=== PATIENT | male | born 1970 | race Two or more races ===

== ENCOUNTER → 2016-05-03 | Outpatient (CLI) | payer BC ==
[~2016-05-03] MED LIST: ASPI81TA13 PO; ATOR10TA PO; CHLO25TA22 PO; GLIP-115 PO; HYDR100T9 PO; LOS50T PO; METO25TA62 PO; METR1CAP OR; SIMV-13 PO
[2016-05-03 10:24] LABS: Urine Protein/Creatinine Ratio 8.49
[2016-05-03 10:29] LABS: Albumin 2.3 g/dL (3.4-5.0); BUN/Creatinine Ratio 21.2; Bilirubin, Total 0.2 mg/dL (0.2-1.0); Calcium 8.2 mg/dL (8.5-10.1); Magnesium 2.3 mg/dL (1.6-2.6); Phosphorus 4.2 mg/dL (2.5-4.90); Potassium 4.8 mmol/L (3.5-5.1); Total Protein 6.5 g/dL (6.4-8.2); Uric Acid 8.5 mg/dL (3.5-7.2)
== END | disposition home or self-care (01) ==
LOC: LAB 08:55
PROVIDERS: ATTEND Internal Medicine Nephrology
DX: N18.3 Chronic kidney disease, stage 3 (moderate) (principal); E83.2 Disorders of zinc metabolism; E21.3 Hyperparathyroidism, unspecified; E83.39 Other disorders of phosphorus metabolism; R80.9 Proteinuria, unspecified
CPT/HCPCS: 36415; 80053; 82570; 83735; 83970; 84100; 84156; 84550

== ENCOUNTER → 2016-06-25 | Outpatient (CLI) | payer BC ==
[2016-06-25 11:17] LABS: Urine Protein/Creatinine Ratio 10.24
[2016-06-25 11:21] LABS: Albumin 2.8 g/dL (3.4-5.0); BUN/Creatinine Ratio 21.8; Bilirubin, Total 0.3 mg/dL (0.2-1.0); Calcium 8.6 mg/dL (8.5-10.1); Magnesium 2.1 mg/dL (1.6-2.6); Phosphorus 4.3 mg/dL (2.5-4.90); Potassium 4.7 mmol/L (3.5-5.1); Total Protein 7.4 g/dL (6.4-8.2); Uric Acid 9.2 mg/dL (3.5-7.2)
== END | disposition home or self-care (01) ==
LOC: LAB 10:22
PROVIDERS: ATTEND Internal Medicine Nephrology
DX: N18.3 Chronic kidney disease, stage 3 (moderate) (principal); E83.2 Disorders of zinc metabolism; E83.39 Other disorders of phosphorus metabolism; E21.3 Hyperparathyroidism, unspecified; R80.9 Proteinuria, unspecified; E55.9 Vitamin D deficiency, unspecified; E13.22 Other specified diabetes mellitus with diabetic chronic kidney disease
CPT/HCPCS: 36415; 80053; 80061; 82306; 82570; 83036; 83735; 83970; 84100; 84153; 84156; 84550

== ENCOUNTER 2016-08-21 23:59 | Inpatient (IN) | payer BC ==
[~2016-08-21] VITALS: Ht 175.3 cm; Wt 80.9 kg
[2016-08-22] VITALS (69 sets, daily range): BP systolic 86–177; BP diastolic 45–100
[2016-08-22 00:47] LABS: Allen Test Yes; Base Excess -6.7 mmol/L (-2.0-2.0); Blood 02Sat 83.3 % (96-100); Blood COHb 0.3 % (0.5-1.5); Blood MetHb 0.3 % (0.0-1.5); HCO3 17.1 mmol/L (22-26.0); HHb 16.6 % (0.0-5.0); MODE NASAL CANNULA; O2Hb 82.8 % (94.0-97.0); PCO2 28.8 mmHg (35.0-45.0); PCO2(T) 28.8 mmHg (35.0-45.0); Sample Type Arterial; pH 7.392 (7.350-7.450)
[2016-08-22 00:49] LABS: Hemoglobin 9.9 g/dL (13.5-17.5); Mean Corpuscular Hemoglobin 29.6 pg (28.0-32.0); Mean Corpuscular Hgb Conc. 32.9 g/dL (32.0-36.0); Mean Corpuscular Volume 89.9 fL (80.0-100.0); Mean Platelet Volume 8.1 fL (7.4-10.4); Platelet Count (auto) 248 10^3/uL (140-450); Red Cell Distribution Width 12.2 % (11.6-16.0); SUSPECT VIEW TRANSMISSION; White Blood Cell 16.3 10^3/uL (4.4-10.8)
[2016-08-22 00:52] LABS: Metamyelocytes % 0; Myelocytes % 0; Promyelocytes % 0; Reactive Lymphocytes 0
[2016-08-22 01:07] LABS: Albumin 2.9 g/dL (3.4-5.0); Calcium 8.5 mg/dL (8.5-10.1); Magnesium 2.7 mg/dL (1.6-2.6); Potassium 4.4 mmol/L (3.5-5.1)
[2016-08-22 01:08] LABS: INR 1.02 (0.9-1.15); Partial Thromboplastin Time 31.9 sec (22.64-33.71); Prothrombin Time 11.1 sec (9.37-12.3)
[2016-08-22 01:09] LABS: BUN/Creatinine Ratio 27.9
[2016-08-22 01:12] LABS: Bilirubin, Total 0.4 mg/dL (0.2-1.0); Total Protein 7.7 g/dL (6.4-8.2)
[2016-08-22 01:21] LABS: Anisocytosis Slight; Platelet Estimate Adequate
[2016-08-22 01:25] LABS: Temperature: 21.9 C (20.0-25.0)
[2016-08-22] MEDS ORDERED: BUMETANIDE (0.25MG/ML) 4 ML VIAL IV ONE (01:30)
[2016-08-22] MEDS ORDERED: cefTRIAXone 1GM/50ML D5W 50 ML IV ONE (01:30)
[2016-08-22 02:25] LABS: Urine Bilirubin Negative (Negative); Urine Blood Negative /uL (Negative); Urine Color Yellow (Yellow); Urine Glucose Normal (Normal); Urine Hyaline Cast FEW /lpf (0 - 2); Urine Ketone Negative (Negative); Urine Nitrite Negative (Negative); Urine RBC 4 /hpf (0 - 3); Urine Squamous Epithelial Cell FEW /hpf (<5); Urine Urobilinogen Normal (Negative); Urine pH 5.5 (5.0-8.0)
[2016-08-22 04:00] LABS: Allen Test Yes; Base Excess -7.8 mmol/L (-2.0-2.0); Blood 02Sat 94.9 % (96-100); Blood COHb 0.3 % (0.5-1.5); Blood MetHb 0.2 % (0.0-1.5); HCO3 16.4 mmol/L (22-26.0); HHb 5.1 % (0.0-5.0); MODE MASK - BIPAP; O2Hb 94.4 % (94.0-97.0); PO2 91.3 mmHg (80.0-100.0); PO2(T) 91.3 mmHg (80.0-100.0); Sample Type Arterial; pH 7.369 (7.350-7.450)
[2016-08-22] MEDS ORDERED: SODIUM BICARBONATE 8.4 % INJ 50ML VIAL IV ONE (04:30)
[2016-08-22] MEDS ORDERED: LORazepam 2MG/ML-1ML VIAL IV ONE (04:30)
[2016-08-22] MEDS ORDERED: ETOMIDATE (2MG/ML) 20ML VIAL IV ONE ×2 (04:58→05:15)
[2016-08-22] MEDS ORDERED: SUCCINYLCHOLINE CHLORIDE 20 MG/ML 10ML VIAL IV ONE ×2 (04:59→05:15)
[2016-08-22] MEDS ORDERED: MORPHINE SULF INJ 2 MG/ML SYRINGE 1ML IV ONE (05:00)
[2016-08-22] MEDS ORDERED: MIDAZOLAM DRIP 100 mg/100mL NS 100 ML IV ONE (05:07)
[2016-08-22] MEDS ORDERED: SODIUM CHLORIDE 0.9% 1,000 ML IV SCH (05:14)
[2016-08-22] MEDS: MIDAZOLAM DRIP 100 mg/100mL NS 100 ML IV SCH ×2 (05:28→20:52)
[2016-08-22] MEDS ORDERED: PROPOFOL 100 ML IV ONE (05:49)
[2016-08-22] MEDS ORDERED: PIPERACILLIN-TAZOB 2.25GM 50 ML IV SCH (06:00)
[2016-08-22] MEDS: PROPOFOL 100 ML IV SCH ×2 (06:06→11:56)
[2016-08-22] MEDS: SODIUM CHLOR 0.9% PF (SALINE LOCK) 10ML VIAL IV SCH ×3 (06:07→21:54)
[2016-08-22 06:42] LABS: Base Excess -8.5 mmol/L (-2.0-2.0); Blood 02Sat 91.4 % (96-100); Blood COHb 0.2 % (0.5-1.5); Blood MetHb 0.3 % (0.0-1.5); HCO3 17.5 mmol/L (22-26.0); HHb 8.6 % (0.0-5.0); MODE VENT - A/C; O2Hb 90.9 % (94.0-97.0); PCO2 37.4 mmHg (35.0-45.0); PCO2(T) 37.4 mmHg (35.0-45.0); PO2 75.3 mmHg (80.0-100.0); PO2(T) 75.3 mmHg (80.0-100.0); Sample Type Arterial; pH 7.287 (7.350-7.450)
[2016-08-22] MEDS: FAMOTIDINE (10MG/ML) 2ML VL IV SCH ×2 (10:00→21:50)
[2016-08-22] MEDS ORDERED: DOPamine 1600MCG/ML 250 ML IV SCH (12:15)
[2016-08-22] MEDS: ALBUMIN 25% 100 ML IV SCH ×2 (12:40→21:51)
[2016-08-22] MEDS: DOPamine 1600MCG/ML 250 ML IV SCH (12:40)
[2016-08-22] MEDS: BUMETANIDE (0.25 MG/ML) INJ 10ML IV SCH ×2 (14:02→17:41)
[2016-08-22] MEDS: PIPERACILLIN-TAZOB 2.25GM 50 ML IV SCH ×2 (14:16→21:55)
[2016-08-22] MEDS: SODIUM BICARBONATE 50ML VIAL 50 ML in D5W 5% 1,000 ML IV SCH ×2 (14:36→22:45)
[2016-08-22] MEDS ORDERED: LOSA50TA6 PO (15:02)
[2016-08-22] MEDS ORDERED: HYDR100T9 PO (15:02)
[2016-08-22] MEDS ORDERED: ASPI81CH43 PO (15:02)
[2016-08-22] MEDS ORDERED: METO-158 PO (15:02)
[2016-08-22] MEDS ORDERED: FERR325T PO (15:02)
[2016-08-22] MEDS ORDERED: ERGO2000 PO (15:02)
[2016-08-22] MEDS ORDERED: AMLO10TA2 PO (15:02)
[2016-08-22] MEDS ORDERED: BUME1TAB PO (15:02)
[2016-08-22] MEDS ORDERED: EZET10TA2 PO (15:02)
[2016-08-22] MEDS ORDERED: POTA20TA53 PO (15:02)
[2016-08-22] MEDS ORDERED: GLIM4TAB42 PO (15:02)
[2016-08-22] MEDS ORDERED: ATO40T PO (15:02)
[2016-08-22] MEDS ORDERED: DEXTROSE (50%) 50ML SYRG IV PRN (17:15)
[2016-08-22] MEDS: InsuLIN REG 1unit/0.01ml Soln (100units/ml) SC SCH ×2 (17:41→23:52)
[2016-08-22] MEDS: ACCU-CHEK COMFORT CURVE STRIP VI SCH (17:41)
[2016-08-23] VITALS (97 sets, daily range): BP systolic 114–169; BP diastolic 61–97
[2016-08-23 03:58] LABS: Basophils # (auto) 0 uL; Basophils % (auto) 0.4 % (0.0-2.0); DEFINITIVE VIEW TRANSMISSION; Eosinophils # (auto) 0.4 uL; Eosinophils % (auto) 3.7 % (0.0-7.0); Hematocrit 23.8 % (41.0-53.0); Hemoglobin 8.1 g/dL (13.5-17.5); Lymphocytes # (auto) 0.8 uL; Lymphocytes % (auto) 8.2 % (10.0-50.0); Mean Corpuscular Hemoglobin 30.5 pg (28.0-32.0); Mean Corpuscular Volume 89.6 fL (80.0-100.0); Mean Platelet Volume 8.1 fL (7.4-10.4); Monocytes # (auto) 0.4 uL; Monocytes % (auto) 4.3 % (0.0-12.0); Neutrophils # (auto) 8.1 uL; Neutrophils % (auto) 83.4 % (37.0-80.0); Platelet Count (auto) 211 10^3/uL (140-450); Red Cell Distribution Width 12.6 % (11.6-16.0); White Blood Cell 9.7 10^3/uL (4.4-10.8)
[2016-08-23 04:19] LABS: Calcium 8.4 mg/dL (8.5-10.1); Potassium 3.9 mmol/L (3.5-5.1)
[2016-08-23 04:23] LABS: Albumin 2.5 g/dL (3.4-5.0); BUN/Creatinine Ratio 30.7; Total Protein 6.6 g/dL (6.4-8.2)
[2016-08-23 04:25] LABS: Bilirubin, Total 0.5 mg/dL (0.2-1.0)
[2016-08-23] MEDS: InsuLIN REG 1unit/0.01ml Soln (100units/ml) SC SCH ×3 (06:00→17:57)
[2016-08-23] MEDS: PIPERACILLIN-TAZOB 2.25GM 50 ML IV SCH ×3 (06:16→21:49)
[2016-08-23] MEDS: BUMETANIDE (0.25 MG/ML) INJ 10ML IV SCH ×3 (06:17→21:50)
[2016-08-23] MEDS: ACCU-CHEK COMFORT CURVE STRIP VI SCH ×4 (06:17→17:56)
[2016-08-23] MEDS: SODIUM CHLOR 0.9% PF (SALINE LOCK) 10ML VIAL IV SCH ×3 (06:17→22:00)
[2016-08-23] MEDS: SODIUM BICARBONATE 50ML VIAL 50 ML in D5W 5% 1,000 ML IV SCH ×2 (09:15→19:45)
[2016-08-23] MEDS: FAMOTIDINE (10MG/ML) 2ML VL IV SCH ×2 (10:00→21:49)
[2016-08-23] MEDS: PROPOFOL 100 ML IV SCH ×2 (10:00→17:02)
[2016-08-23] MEDS: POTASSIUM CHL 20MEQ/100ML 100 ML IV SCH ×2 (10:15→12:15)
[2016-08-23 10:56] LABS: Allen Test Modified; Base Excess -2.6 mmol/L (-2.0-2.0); Blood 02Sat 96.7 % (96-100); Blood COHb 0.1 % (0.5-1.5); Blood MetHb 0.3 % (0.0-1.5); HCO3 21.9 mmol/L (22-26.0); HHb 3.3 % (0.0-5.0); MODE VENT - A/C; O2Hb 96.3 % (94.0-97.0); PCO2 37.1 mmHg (35.0-45.0); PCO2(T) 37.1 mmHg (35.0-45.0); Sample Type Arterial; pH 7.389 (7.350-7.450)
[2016-08-23] MEDS ORDERED: Diabetisource AC 1 Liter GT SCH (11:15)
[2016-08-23] MEDS: ENOXAPARIN SOD 30 MG/0.3 ML SYRINGE SC SCH (11:45)
[2016-08-23] MEDS: DOPamine 1600MCG/ML 250 ML IV SCH (17:02)
[2016-08-23] MEDS ORDERED: BUMETANIDE (0.25 MG/ML) INJ 10ML IV SCH (18:00)
[2016-08-23] MEDS ORDERED: ACETAMINOPHEN 650 mg PER 20 mL UD GT PRN (20:45)
[2016-08-23] MEDS ORDERED: ALBUMIN 25% 100 ML IV SCH (22:00)
[2016-08-24] VITALS (97 sets, daily range): BP systolic 116–175; BP diastolic 67–93
[2016-08-24] MEDS: SODIUM BICARBONATE 50ML VIAL 50 ML in D5W 5% 1,000 ML IV SCH (00:30)
[2016-08-24] MEDS: PROPOFOL 100 ML IV SCH (01:52)
[2016-08-24 04:27] LABS: Basophils # (auto) 0 uL; Basophils % (auto) 0.3 % (0.0-2.0); DEFINITIVE VIEW TRANSMISSION; Eosinophils # (auto) 0.8 uL; Eosinophils % (auto) 8.8 % (0.0-7.0); Hematocrit 22.7 % (41.0-53.0); Hemoglobin 7.8 g/dL (13.5-17.5); Lymphocytes % (auto) 10.8 % (10.0-50.0); Mean Corpuscular Hemoglobin 30.5 pg (28.0-32.0); Mean Corpuscular Hgb Conc. 34.3 g/dL (32.0-36.0); Mean Corpuscular Volume 89.1 fL (80.0-100.0); Mean Platelet Volume 8.3 fL (7.4-10.4); Monocytes # (auto) 0.5 uL; Monocytes % (auto) 5.8 % (0.0-12.0); Neutrophils # (auto) 6.9 uL; Neutrophils % (auto) 74.3 % (37.0-80.0); Platelet Count (auto) 217 10^3/uL (140-450); Red Cell Distribution Width 13.1 % (11.6-16.0); White Blood Cell 9.3 10^3/uL (4.4-10.8)
[2016-08-24 04:47] LABS: BUN/Creatinine Ratio 26.2; Calcium 8.4 mg/dL (8.5-10.1); Phosphorus 5.6 mg/dL (2.5-4.90); Potassium 3.4 mmol/L (3.5-5.1)
[2016-08-24] MEDS: MIDAZOLAM DRIP 100 mg/100mL NS 100 ML IV SCH (05:07)
[2016-08-24] MEDS: SODIUM CHLOR 0.9% PF (SALINE LOCK) 10ML VIAL IV SCH ×3 (05:49→21:38)
[2016-08-24] MEDS: PIPERACILLIN-TAZOB 2.25GM 50 ML IV SCH ×3 (05:49→21:38)
[2016-08-24] MEDS: ACCU-CHEK COMFORT CURVE STRIP VI SCH ×4 (06:00→17:42)
[2016-08-24] MEDS: InsuLIN REG 1unit/0.01ml Soln (100units/ml) SC SCH ×4 (06:00→17:42)
[2016-08-24 08:56] LABS: Allen Test Yes; Base Excess 0.2 mmol/L (-2.0-2.0); Blood 02Sat 86.3 % (96-100); Blood MetHb 0.2 % (0.0-1.5); HCO3 23.2 mmol/L (22-26.0); HHb 13.7 % (0.0-5.0); MODE VENT - A/C; O2Hb 86.1 % (94.0-97.0); PCO2 31.6 mmHg (35.0-45.0); PCO2(T) 31.6 mmHg (35.0-45.0); Sample Type Arterial; pH 7.484 (7.350-7.450)
[2016-08-24] MEDS: ENOXAPARIN SOD 30 MG/0.3 ML SYRINGE SC SCH (10:20)
[2016-08-24] MEDS: FAMOTIDINE (10MG/ML) 2ML VL IV SCH ×2 (10:20→21:38)
[2016-08-24] MEDS ORDERED: POTASSIUM CHL 20MEQ/100ML 100 ML IV SCH (12:00)
[2016-08-24] MEDS: POTASSIUM CHL 20MEQ/100ML 100 ML IV SCH ×2 (12:00→13:35)
[2016-08-24] MEDS: DOPamine 1600MCG/ML 250 ML IV SCH (12:15)
[2016-08-24] MEDS ORDERED: SODIUM BICARBONATE 50ML VIAL 50 ML in D5W 5% 1,000 ML IV SCH (12:15)
[2016-08-24] MEDS: BUMETANIDE (0.25MG/ML) 4 ML VIAL IV SCH ×2 (12:30→17:44)
[2016-08-24 15:08] LABS: Allen Test Yes; Base Excess 2.9 mmol/L (-2.0-2.0); Blood 02Sat 96.8 % (96-100); Blood COHb 0.3 % (0.5-1.5); Blood MetHb 0.4 % (0.0-1.5); HCO3 26.3 mmol/L (22-26.0); HHb 3.2 % (0.0-5.0); MODE VENT - CPAP; O2Hb 96.1 % (94.0-97.0); PCO2 35.4 mmHg (35.0-45.0); PCO2(T) 35.4 mmHg (35.0-45.0); PO2 102.5 mmHg (80.0-100.0); PO2(T) 102.5 mmHg (80.0-100.0); Pressure Support 8; Sample Type Arterial; pH 7.489 (7.350-7.450)
[2016-08-24] MEDS: METOPROLOL TARTRATE 50 MG TAB PO SCH (21:39)
[2016-08-24] MEDS ORDERED: hydrALAZINE HCL 10 MG TAB PO SCH (22:00)
[2016-08-24] MEDS: LOSARTAN POTASSIUM 50 MG TAB PO SCH (22:25)
[2016-08-25] VITALS (46 sets, daily range): BP systolic 108–156; BP diastolic 58–86
[2016-08-25 04:14] LABS: Basophils # (auto) 0 uL; Basophils % (auto) 0.4 % (0.0-2.0); DEFINITIVE VIEW TRANSMISSION; Eosinophils # (auto) 0.7 uL; Eosinophils % (auto) 7.2 % (0.0-7.0); Hematocrit 23.3 % (41.0-53.0); Hemoglobin 7.9 g/dL (13.5-17.5); Lymphocytes # (auto) 1.3 uL; Mean Corpuscular Hemoglobin 30.3 pg (28.0-32.0); Mean Corpuscular Hgb Conc. 33.9 g/dL (32.0-36.0); Mean Corpuscular Volume 89.4 fL (80.0-100.0); Mean Platelet Volume 8.4 fL (7.4-10.4); Monocytes # (auto) 0.6 uL; Monocytes % (auto) 5.9 % (0.0-12.0); Neutrophils # (auto) 7.6 uL; Neutrophils % (auto) 73.5 % (37.0-80.0); Platelet Count (auto) 214 10^3/uL (140-450); Red Cell Distribution Width 13.2 % (11.6-16.0); White Blood Cell 10.3 10^3/uL (4.4-10.8)
[2016-08-25 04:38] LABS: BUN/Creatinine Ratio 25.1; Calcium 8.3 mg/dL (8.5-10.1); Potassium 3.6 mmol/L (3.5-5.1)
[2016-08-25] MEDS: MIDAZOLAM DRIP 100 mg/100mL NS 100 ML IV SCH (05:07)
[2016-08-25] MEDS: PROPOFOL 100 ML IV SCH (05:48)
[2016-08-25] MEDS: PIPERACILLIN-TAZOB 2.25GM 50 ML IV SCH ×3 (06:00→21:15)
[2016-08-25] MEDS: SODIUM CHLOR 0.9% PF (SALINE LOCK) 10ML VIAL IV SCH ×3 (06:00→21:51)
[2016-08-25] MEDS: InsuLIN REG 1unit/0.01ml Soln (100units/ml) SC SCH ×5 (06:00→23:21)
[2016-08-25] MEDS: ACCU-CHEK COMFORT CURVE STRIP VI SCH ×5 (06:00→23:21)
[2016-08-25] MEDS: BUMETANIDE (0.25MG/ML) 4 ML VIAL IV SCH (06:00)
[2016-08-25] MEDS: hydrALAZINE HCL 25 MG TAB PO SCH ×3 (06:25→21:37)
[2016-08-25] MEDS ORDERED: hydrALAZINE HCL 25 MG TAB PO ONE (06:45)
[2016-08-25] MEDS: ENOXAPARIN SOD 30 MG/0.3 ML SYRINGE SC SCH (10:37)
[2016-08-25] MEDS: LOSARTAN POTASSIUM 50 MG TAB PO SCH (10:37)
[2016-08-25] MEDS: METOPROLOL TARTRATE 50 MG TAB PO SCH ×2 (10:38→21:37)
[2016-08-25] MEDS: FAMOTIDINE (10MG/ML) 2ML VL IV SCH (10:38)
[2016-08-25] MEDS: amLODIPine BESYLATE 5 MG TAB PO SCH (10:38)
[2016-08-25] MEDS ORDERED: FAMOTIDINE 20 MG TAB PO ONE (11:30)
[2016-08-25] MEDS ORDERED: POTASSIUM CHL 20 Meq TABLET PO ONE (12:15)
[2016-08-25] MEDS: CALCIUM ACETATE 667 MG CAP PO SCH (18:12)
[2016-08-25] MEDS ORDERED: FAMOTIDINE 20 MG TAB PO SCH (22:00)
[2016-08-26 04:42] VITALS: BP 142/76
[2016-08-26] MEDS: PIPERACILLIN-TAZOB 2.25GM 50 ML IV SCH ×3 (05:27→21:11)
[2016-08-26] MEDS: SODIUM CHLOR 0.9% PF (SALINE LOCK) 10ML VIAL IV SCH ×2 (05:30→22:00)
[2016-08-26] MEDS: hydrALAZINE HCL 25 MG TAB PO SCH ×3 (05:30→21:41)
[2016-08-26] MEDS: InsuLIN REG 1unit/0.01ml Soln (100units/ml) SC SCH ×4 (06:00→23:26)
[2016-08-26 06:04] LABS: Basophils # (auto) 0.2 uL; DEFINITIVE VIEW TRANSMISSION; Eosinophils # (auto) 0.9 uL; Eosinophils % (auto) 9.6 % (0.0-7.0); Hematocrit 25.3 % (41.0-53.0); Hemoglobin 8.7 g/dL (13.5-17.5); Lymphocytes # (auto) 1.1 uL; Lymphocytes % (auto) 11.4 % (10.0-50.0); Mean Corpuscular Hemoglobin 29.9 pg (28.0-32.0); Mean Corpuscular Hgb Conc. 34.3 g/dL (32.0-36.0); Mean Corpuscular Volume 87.3 fL (80.0-100.0); Mean Platelet Volume 8.3 fL (7.4-10.4); Monocytes # (auto) 0.6 uL; Monocytes % (auto) 6.2 % (0.0-12.0); Neutrophils # (auto) 6.7 uL; Neutrophils % (auto) 70.8 % (37.0-80.0); Platelet Count (auto) 184 10^3/uL (140-450); Red Cell Distribution Width 13.5 % (11.6-16.0); SUSPECT VIEW TRANSMISSION; White Blood Cell 9.5 10^3/uL (4.4-10.8)
[2016-08-26] MEDS: ACCU-CHEK COMFORT CURVE STRIP VI SCH ×4 (06:22→23:26)
[2016-08-26 06:23] LABS: BUN/Creatinine Ratio 19.8; Calcium 7.6 mg/dL (8.5-10.1); Potassium 4.1 mmol/L (3.5-5.1)
[2016-08-26] MEDS ORDERED: BUMETANIDE (0.25MG/ML) 4 ML VIAL IV SCH (07:00)
[2016-08-26] MEDS: SOD CHL 0.45% 1,000 ML IV SCH ×2 (08:56→21:50)
[2016-08-26] MEDS: CALCIUM ACETATE 667 MG CAP PO SCH ×3 (08:56→18:18)
[2016-08-26 09:00] VITALS: BP 146/79
[2016-08-26] MEDS: ENOXAPARIN SOD 30 MG/0.3 ML SYRINGE SC SCH ×2 (10:00→11:01)
[2016-08-26] MEDS: METOPROLOL TARTRATE 50 MG TAB PO SCH ×2 (11:00→21:42)
[2016-08-26] MEDS: FAMOTIDINE 20 MG TAB PO SCH (11:01)
[2016-08-26] MEDS: amLODIPine BESYLATE 5 MG TAB PO SCH (11:01)
[2016-08-26 11:30] LABS: INR 0.97 (0.9-1.15); Partial Thromboplastin Time 29.8 sec (22.64-33.71); Prothrombin Time 10.6 sec (9.37-12.3)
[2016-08-26] MEDS ORDERED: ceFAZolin 1GM/50ML D5W 50 ML IV ONE (12:28)
[2016-08-26] MEDS ORDERED: ceFAZolin 1GM VL ONE (12:33)
[2016-08-26] MEDS ORDERED: BUPIVACAINE 0.75% INJ 10ML MPV SDV IJ ONE ×2 (12:33→13:01)
[2016-08-26] MEDS ORDERED: fentaNYL CITRATE 100 MCG/2 ML VL ONE (12:40)
[2016-08-26] MEDS ORDERED: MIDAZOLAM HCL 1MG/1ML-2 ML VIAL ONE (12:40)
[2016-08-26 13:00] VITALS: BP 131/76
[2016-08-26] MEDS ORDERED: PROPOFOL 10 MG/ML 20 ML IV ONE (13:05)
[2016-08-26] MEDS ORDERED: LABETALOL HCL 5 MG/ML 4ML SYRINGE IV PRN (14:00)
[2016-08-26] MEDS ORDERED: ePHEDrine SULFATE 50 MG/ML AMP IV PRN (14:00)
[2016-08-26] MEDS ORDERED: MIDAZOLAM HCL 1MG/1ML-2 ML VIAL IV PRN (14:00)
[2016-08-26] MEDS ORDERED: HYDROmorphone HCL 2 MG/ML VL IV PRN (14:00)
[2016-08-26] MEDS ORDERED: ACCU-CHEK COMFORT CURVE STRIP VI ONE (14:00)
[2016-08-26] MEDS ORDERED: ONDANSETRON HCL 4 MG/2 ML VIAL IV ONE (14:00)
[2016-08-26] MEDS ORDERED: MORPHINE SULF INJ 2 MG/ML SYRINGE 1ML IV PRN (14:00)
[2016-08-26] MEDS ORDERED: KETOROLAC TROMETH 30 MG/ML 1ML VIAL IV ONE (14:00)
[2016-08-26] MEDS ORDERED: SODIUM CHL 0.9% 1000 ML BAG XX ONE (15:00)
[2016-08-26] MEDS ORDERED: EPOETIN ALFA 10,000 UNIT/1 ML VIAL IV ONE (15:00)
[2016-08-26 17:00] VITALS: BP 117/72
[2016-08-26 21:46] VITALS: BP 131/81
[2016-08-27 04:48] VITALS: BP 140/83
[2016-08-27] MEDS: PIPERACILLIN-TAZOB 2.25GM 50 ML IV SCH ×3 (05:26→21:25)
[2016-08-27] MEDS: InsuLIN REG 1unit/0.01ml Soln (100units/ml) SC SCH ×3 (05:30→18:00)
[2016-08-27] MEDS: hydrALAZINE HCL 25 MG TAB PO SCH ×3 (05:30→21:46)
[2016-08-27] MEDS: ACCU-CHEK COMFORT CURVE STRIP VI SCH ×3 (05:30→18:04)
[2016-08-27] MEDS: SODIUM CHLOR 0.9% PF (SALINE LOCK) 10ML VIAL IV SCH ×2 (06:25→14:09)
[2016-08-27 07:36] LABS: Basophils # (auto) 0 uL; DEFINITIVE VIEW TRANSMISSION; Mean Corpuscular Hemoglobin 30.1 pg (28.0-32.0); Mean Corpuscular Hgb Conc. 34.4 g/dL (32.0-36.0); Monocytes # (auto) 0.8 uL; Neutrophils # (auto) 7.9 uL; White Blood Cell 10.6 10^3/uL (4.4-10.8)
[2016-08-27 07:51] LABS: BUN/Creatinine Ratio 21.4; Eosinophils # (auto) 1.1 uL; Eosinophils % (auto) 10.1 % (0.0-7.0); Lymphocytes # (auto) 0.8 uL; Lymphocytes % (auto) 7.5 % (10.0-50.0); Mean Corpuscular Volume 87.4 fL (80.0-100.0); Mean Platelet Volume 8.1 fL (7.4-10.4); Monocytes % (auto) 7.8 % (0.0-12.0); Neutrophils % (auto) 74.6 % (37.0-80.0); Platelet Count (auto) 219 10^3/uL (140-450); Potassium 4.1 mmol/L (3.5-5.1); Red Cell Distribution Width 12.8 % (11.6-16.0)
[2016-08-27 07:52] LABS: Calcium 8.1 mg/dL (8.5-10.1)
[2016-08-27 09:00] VITALS: BP 138/74
[2016-08-27] MEDS ORDERED: LIDOCAINE 2%HCL (LOCAL ANESTH.) INJ 20ML MDV ONE (09:36)
[2016-08-27] MEDS ORDERED: fentaNYL CITRATE 100 MCG/2 ML VL ONE (09:40)
[2016-08-27] MEDS ORDERED: MIDAZOLAM HCL 1MG/1ML-2 ML VIAL ONE (09:40)
[2016-08-27] MEDS ORDERED: ceFAZolin 1GM/50ML D5W 50 ML IV ONE (09:59)
[2016-08-27] MEDS ORDERED: HEPARIN SODIUM (PORCINE) 5000 UNITS/ML 1ML VIAL ONE ×2 (10:58→11:05)
[2016-08-27] MEDS: ONDANSETRON HCL 4 MG/2 ML VIAL IV PRN (11:56)
[2016-08-27] MEDS: CALCIUM ACETATE 667 MG CAP PO SCH ×3 (12:00→18:02)
[2016-08-27 12:50] VITALS: BP 136/72
[2016-08-27 15:36] VITALS: BP 142/75
[2016-08-27 16:50] VITALS: BP 143/78
[2016-08-27] MEDS: amLODIPine BESYLATE 5 MG TAB PO SCH (18:03)
[2016-08-27] MEDS: METOPROLOL TARTRATE 50 MG TAB PO SCH ×2 (18:03→21:47)
[2016-08-27] MEDS: FAMOTIDINE 20 MG TAB PO SCH (18:03)
[2016-08-27] MEDS: ENOXAPARIN SOD 30 MG/0.3 ML SYRINGE SC SCH (18:04)
[2016-08-28] MEDS: ACCU-CHEK COMFORT CURVE STRIP VI SCH ×4 (00:05→18:00)
[2016-08-28] MEDS: InsuLIN REG 1unit/0.01ml Soln (100units/ml) SC SCH ×4 (00:06→18:00)
[2016-08-28] MEDS: SODIUM CHLOR 0.9% PF (SALINE LOCK) 10ML VIAL IV SCH ×3 (00:06→14:02)
[2016-08-28] MEDS: ONDANSETRON HCL 4 MG/2 ML VIAL IV PRN (00:06)
[2016-08-28 04:50] VITALS: BP 117/58
[2016-08-28] MEDS: hydrALAZINE HCL 25 MG TAB PO SCH ×2 (05:15→14:17)
[2016-08-28] MEDS: PIPERACILLIN-TAZOB 2.25GM 50 ML IV SCH ×2 (05:16→14:19)
[2016-08-28 08:37] VITALS: BP 141/76
[2016-08-28] MEDS: ENOXAPARIN SOD 30 MG/0.3 ML SYRINGE SC SCH (10:10)
[2016-08-28] MEDS: amLODIPine BESYLATE 5 MG TAB PO SCH (10:11)
[2016-08-28] MEDS: METOPROLOL TARTRATE 50 MG TAB PO SCH (10:11)
[2016-08-28] MEDS: FAMOTIDINE 20 MG TAB PO SCH (10:12)
[2016-08-28] MEDS: CALCIUM ACETATE 667 MG CAP PO SCH ×3 (10:12→18:00)
[2016-08-28 13:00] VITALS: BP 152/78
[2016-08-28 17:08] VITALS: BP 108/53
[2016-08-28 22:00] VITALS: BP 83/43
[2016-08-29 00:15] VITALS: BP 125/71
[2016-08-29 05:00] VITALS: BP_SYST 105; BP_SYST 133; BP_DIAS 59; BP_DIAS 71
== END 2016-08-28 19:50 | disposition home or self-care (01) | DRG 981 ==
LOC: ER 08-22 00:02 → ICU WEST 08-22 00:03 → WEST WING 08-25 15:49 → TELE-CENTR 08-25 15:50
PROVIDERS: ADMIT Emergency Medicine; ATTEND Internal Medicine
PROC: 5A09357 Assistance with Respiratory Ventilation, Less than 24 Consecutive Hours, Continuous Positive Airway Pressure (ICD-10-PCS; principal; 2016-08-22)
PROC: 5A1945Z Respiratory Ventilation, 24-96 Consecutive Hours (ICD-10-PCS; 2016-08-22)
PROC: 0BH17EZ Insertion of Endotracheal Airway into Trachea, Via Natural or Artificial Opening (ICD-10-PCS; 2016-08-22)
PROC: 02HV33Z Insertion of Infusion Device into Superior Vena Cava, Percutaneous Approach (ICD-10-PCS; 2016-08-23)
PROC: B548ZZA Ultrasonography of Superior Vena Cava, Guidance (ICD-10-PCS; 2016-08-23)
PROC: 30233N1 Transfusion of Nonautologous Red Blood Cells into Peripheral Vein, Percutaneous Approach (ICD-10-PCS; 2016-08-25)
PROC: 0Y6S0Z0 Detachment at Left 2nd Toe, Complete, Open Approach (ICD-10-PCS; 2016-08-26)
PROC: 0HRNXK3 Replacement of Left Foot Skin with Nonautologous Tissue Substitute, Full Thickness, External Approach (ICD-10-PCS; 2016-08-26)
PROC: 05HM33Z Insertion of Infusion Device into Right Internal Jugular Vein, Percutaneous Approach (ICD-10-PCS; 2016-08-27)
PROC: B5131ZA Fluoroscopy of Right Jugular Veins using Low Osmolar Contrast, Guidance (ICD-10-PCS; 2016-08-27)
PROC: 0JH63XZ Insertion of Tunneled Vascular Access Device into Chest Subcutaneous Tissue and Fascia, Percutaneous Approach (ICD-10-PCS; 2016-08-27)
PROC: 5A1D00Z (ICD-10-PCS; 2016-08-27)
DX: J96.01 Acute respiratory failure with hypoxia (principal); I50.43 Acute on chronic combined systolic (congestive) and diastolic (congestive) heart failure; E43 Unspecified severe protein-calorie malnutrition; N17.0 Acute kidney failure with tubular necrosis; N18.6 End stage renal disease; J18.9 Pneumonia, unspecified organism; E10.52 Type 1 diabetes mellitus with diabetic peripheral angiopathy with gangrene; I13.2 Hypertensive heart and chronic kidney disease with heart failure and with stage 5 chronic kidney disease, or end stage renal disease; M86.8X7 Other osteomyelitis, ankle and foot; E87.2 Acidosis; E10.69 Type 1 diabetes mellitus with other specified complication; E78.5 Hyperlipidemia, unspecified; E10.621 Type 1 diabetes mellitus with foot ulcer; E83.39 Other disorders of phosphorus metabolism; E10.40 Type 1 diabetes mellitus with diabetic neuropathy, unspecified; D63.8 Anemia in other chronic diseases classified elsewhere; E10.21 Type 1 diabetes mellitus with diabetic nephropathy; E66.9 Obesity, unspecified; M10.9 Gout, unspecified; L97.529 Non-pressure chronic ulcer of other part of left foot with unspecified severity; E10.22 Type 1 diabetes mellitus with diabetic chronic kidney disease; Z82.49 Family history of ischemic heart disease and other diseases of the circulatory system; Z83.3 Family history of diabetes mellitus; Z80.9 Family history of malignant neoplasm, unspecified; Z84.89 Family history of other specified conditions; Z88.8 Allergy status to other drugs, medicaments and biological substances; Z79.4 Long term (current) use of insulin; Z86.73 Personal history of transient ischemic attack (TIA), and cerebral infarction without residual deficits; Z89.429 Acquired absence of other toe(s), unspecified side; Z68.26 Body mass index [BMI] 26.0-26.9, adult; Z99.2 Dependence on renal dialysis; Z71.89 Other specified counseling
CPT/HCPCS: 31500; 36415; 36600; 51702; 71010; 73700; 76000; 76775; 76937; 76942; 80048; 80053; 81001; 82306; 82570; 82805; 82962; 83036; 83605; 83735; 83880; 83970; 84100; 84156; 84300; 84484; 85007; 85025; 85027; 85379; 85610; 85730; 86850; 86900; 86901; 86920; 87040; 87070; 87075; 87077; 87081; 87186; 87205; 87340; 92610; 93005; 93306; 93926; 93970; 94002; 94003; 94660; 96365; 96366; 96375; 97001; J0330; J0690; J0696; J0885; J1642; J1815; J2250; J2405; J2543; J2704; J3480; J3490

== ENCOUNTER → 2016-10-19 | Outpatient (CLI) | payer BC ==
[~2016-10-19] MED LIST changes: +AMLO10TA2 PO; +ASPI81CH43 PO; -ASPI81TA13 PO; +ATO40T PO; -ATOR10TA PO; +BUME1TAB PO; -CHLO25TA22 PO; +ERGO2000 PO; +EZET10TA2 PO; +FERR325T PO; +GLIM4TAB42 PO; -GLIP-115 PO; +IOHEXOL 350 MG/ML 100ML IJ ONE; -LOS50T PO; +LOSA50TA6 PO; +METO-158 PO; -METO25TA62 PO; -METR1CAP OR; +POTA20TA53 PO; -SIMV-13 PO
[2016-10-19 09:30] VITALS: BP 144/85
[2016-10-19 10:00] VITALS: BP 154/88
== END | disposition home or self-care (01) ==
LOC: Rad HDHVI 10-18 11:53
PROVIDERS: ATTEND Internal Medicine Cardiovascular Disease
DX: I13.2 Hypertensive heart and chronic kidney disease with heart failure and with stage 5 chronic kidney disease, or end stage renal disease (principal); E11.22 Type 2 diabetes mellitus with diabetic chronic kidney disease; N18.9 Chronic kidney disease, unspecified; I50.9 Heart failure, unspecified; I73.9 Peripheral vascular disease, unspecified; I82.409 Acute embolism and thrombosis of unspecified deep veins of unspecified lower extremity; K40.90 Unilateral inguinal hernia, without obstruction or gangrene, not specified as recurrent; Z89.431 Acquired absence of right foot
CPT/HCPCS: 75635; 82565; G0463; Q9967; 96374

== ENCOUNTER → 2016-12-30 | Outpatient (CLI) | payer MEDICARE, MEDICAID ==
[~2016-12-30] MED LIST changes: -IOHEXOL 350 MG/ML 100ML IJ ONE
== END | disposition home or self-care (01) ==
LOC: XY 09:14
DX: I82.613 Acute embolism and thrombosis of superficial veins of upper extremity, bilateral (principal); N18.6 End stage renal disease
CPT/HCPCS: 93923

== ENCOUNTER → 2017-01-07 | Outpatient (CLI) | payer MEDICARE, MEDICAID ==
[2017-01-07 09:30] VITALS: BP 114/75
[2017-01-07 10:15] VITALS: BP 106/69
[2017-01-07 12:46] LABS: INR 1.01 (0.9-1.15); Partial Thromboplastin Time 28.2 sec (22.64-33.71)
[2017-01-07 13:24] LABS: Basophils # (auto) 0.1 uL; Eosinophils # (auto) 0.5 uL; Eosinophils % (auto) 6.5 % (0.0-7.0); Lymphocytes # (auto) 1.8 uL; Lymphocytes % (auto) 21.7 % (10.0-50.0); Mean Corpuscular Hemoglobin 29.9 pg (28.0-32.0); Mean Corpuscular Hgb Conc. 34.3 g/dL (32.0-36.0); Mean Corpuscular Volume 87.2 fL (80.0-100.0); Monocytes # (auto) 0.5 uL; Monocytes % (auto) 6.4 % (0.0-12.0); Neutrophils # (auto) 5.4 uL; Neutrophils % (auto) 64.4 % (37.0-80.0); Platelet Count (auto) 175 10^3/uL (140-450); Red Cell Distribution Width 14.6 % (11.8-14.3); White Blood Cell 8.4 10^3/uL (4.4-10.8)
[2017-01-07 15:57] LABS: BUN/Creatinine Ratio 7.7; Potassium 4.5 mmol/L (3.5-5.1)
== END | disposition home or self-care (01) ==
LOC: Rad HDHVI 08:59
PROVIDERS: ATTEND Internal Medicine Cardiovascular Disease
DX: Z01.818 Encounter for other preprocedural examination (principal); D64.9 Anemia, unspecified; R79.1 Abnormal coagulation profile; E11.22 Type 2 diabetes mellitus with diabetic chronic kidney disease; I12.0 Hypertensive chronic kidney disease with stage 5 chronic kidney disease or end stage renal disease; N18.6 End stage renal disease
CPT/HCPCS: 36415; 71020; 80048; 85025; 85610; 85730; 93005; G0463

== ENCOUNTER → 2017-02-08 | Outpatient (CLI) | payer MEDICARE, MEDICAID ==
[~2017-02-08] MED LIST changes: -BUME1TAB PO; +CLOP75TA28 PO; -ERGO2000 PO; -FERR325T PO; -HYDR100T9 PO; -POTA20TA53 PO
[2017-02-08 11:30] VITALS: BP_SYST 117; BP_SYST 128; BP_DIAS 74; BP_DIAS 78
[2017-02-08 15:37] LABS: Basophils # (auto) 0.1 uL; Basophils % (auto) 0.9 % (0.0-2.0); Eosinophils # (auto) 0.4 uL; Eosinophils % (auto) 4.8 % (0.0-7.0); Hematocrit 29.5 % (41.0-53.0); Hemoglobin 10.2 g/dL (13.5-17.5); Lymphocytes # (auto) 2.1 uL; Lymphocytes % (auto) 25.8 % (10.0-50.0); Mean Corpuscular Hemoglobin 31.7 pg (28.0-32.0); Mean Corpuscular Hgb Conc. 34.6 g/dL (32.0-36.0); Mean Corpuscular Volume 91.7 fL (80.0-100.0); Monocytes # (auto) 0.7 uL; Monocytes % (auto) 8.6 % (0.0-12.0); Neutrophils % (auto) 59.9 % (37.0-80.0); Platelet Count (auto) 197 10^3/uL (140-450); Red Blood Cells 3.21 10^6/uL (4.5-5.90); Red Cell Distribution Width 14.5 % (11.8-14.3); White Blood Cell 8.3 10^3/uL (4.4-10.8)
[2017-02-08 15:47] LABS: INR 0.98 (0.9-1.15); Partial Thromboplastin Time 28.1 sec (22.64-33.71); Prothrombin Time 10.7 sec (9.37-12.3)
[2017-02-08 18:21] LABS: BUN/Creatinine Ratio 10.7; Calcium 8.3 mg/dL (8.5-10.1); Potassium 4.9 mmol/L (3.5-5.1)
== END | disposition home or self-care (01) ==
LOC: Rad HDHVI 10:46
PROVIDERS: ATTEND Internal Medicine Cardiovascular Disease
DX: Z01.818 Encounter for other preprocedural examination (principal); I10 Essential (primary) hypertension; D64.9 Anemia, unspecified; R79.1 Abnormal coagulation profile; E78.5 Hyperlipidemia, unspecified; Z79.02 Long term (current) use of antithrombotics/antiplatelets
CPT/HCPCS: 36415; 71020; 80048; 85025; 85610; 85730; 93005; G0463

== ENCOUNTER 2017-02-10 08:54 | Day surgery (SDC) | payer MEDICARE, MEDICAID ==
[~2017-02-10 08:54] MED LIST changes: -ASPI81CH43 PO; -EZET10TA2 PO; +EZET10TA6 PO
[2017-02-10] MEDS ORDERED: LIDOCAINE 2%HCL (LOCAL ANESTH.) INJ 20ML MDV ONE (11:30)
[2017-02-10] MEDS ORDERED: MIDAZOLAM HCL 1MG/1ML-2 ML VIAL ONE (12:01)
[2017-02-10] MEDS ORDERED: ANGIOMAX 250 MG VIAL IV ONE (12:01)
[2017-02-10] MEDS ORDERED: fentaNYL CITRATE 100 MCG/2 ML VL ONE (12:01)
[2017-02-10] MEDS ORDERED: IOHEXOL 350 MG/ML 100ML IJ ONE (12:10)
== END 2017-02-10 15:20 | disposition home or self-care (01) ==
LOC: CATH 08:54
PROVIDERS: ATTEND Internal Medicine Cardiovascular Disease
DX: I73.9 Peripheral vascular disease, unspecified (principal); E78.5 Hyperlipidemia, unspecified; I50.9 Heart failure, unspecified; Z95.5 Presence of coronary angioplasty implant and graft; F32.9 Major depressive disorder, single episode, unspecified; E11.22 Type 2 diabetes mellitus with diabetic chronic kidney disease; I12.0 Hypertensive chronic kidney disease with stage 5 chronic kidney disease or end stage renal disease; N18.6 End stage renal disease; Z99.2 Dependence on renal dialysis; E78.00 Pure hypercholesterolemia, unspecified
CPT/HCPCS: 36246; 75716; C1760; C1769; C1887; C1894; J1644; J2250; J3010; J7030; Q9967; 36245; 36247; 99152; 99153

== ENCOUNTER → 2017-03-02 | Outpatient (CLI) | payer MEDICARE, MEDICAID ==
[~2017-03-02] MED LIST changes: +EZET10TA2 PO; -EZET10TA6 PO
== END | disposition home or self-care (01) ==
LOC: Rad HDHVI 13:16
PROVIDERS: ATTEND Internal Medicine Cardiovascular Disease
DX: E78.00 Pure hypercholesterolemia, unspecified (principal)
CPT/HCPCS: 93306

== ENCOUNTER → 2017-03-09 | Outpatient (CLI) | payer MEDICARE, MEDICAID ==
[~2017-03-09] VITALS: Ht 175.3 cm; Wt 83.0 kg
[~2017-03-09] MED LIST changes: +ADENOSINE 70 MG in GIVE UN-DILUTED 0 ML IV ONE; +ADENOSINE 90 MG/30 ML INJ IV ONE
== END | disposition home or self-care (01) ==
LOC: Rad HDHVI 12:52
PROVIDERS: ATTEND Internal Medicine Cardiovascular Disease
DX: I20.9 Angina pectoris, unspecified (principal); I73.9 Peripheral vascular disease, unspecified; E11.9 Type 2 diabetes mellitus without complications; Z79.4 Long term (current) use of insulin
CPT/HCPCS: 78452; 93005; 96374; 96375; A9500; J0153

== ENCOUNTER → 2017-11-25 | Outpatient (CLI) | payer MEDICARE, MEDICAID ==
[~2017-11-25] MED LIST changes: -ADENOSINE 70 MG in GIVE UN-DILUTED 0 ML IV ONE; -ADENOSINE 90 MG/30 ML INJ IV ONE; -EZET10TA2 PO; +EZET10TA6 PO
== END | disposition home or self-care (01) ==
LOC: Rad HDHVI 09:57
PROVIDERS: ATTEND Internal Medicine Cardiovascular Disease
DX: I73.9 Peripheral vascular disease, unspecified (principal); I12.0 Hypertensive chronic kidney disease with stage 5 chronic kidney disease or end stage renal disease; E11.22 Type 2 diabetes mellitus with diabetic chronic kidney disease; N18.6 End stage renal disease
CPT/HCPCS: 93306

== ENCOUNTER → 2017-12-01 | Outpatient (CLI) | payer MEDICARE, MEDICAID ==
[~2017-12-01] VITALS: Ht 175.3 cm; Wt 86.2 kg
[~2017-12-01] MED LIST changes: +ADENOSINE 72 MG in GIVE UN-DILUTED 0 ML IV ONE; +ADENOSINE 90 MG/30 ML INJ IV ONE
== END | disposition home or self-care (01) ==
LOC: Rad HDHVI 13:30
PROVIDERS: ATTEND Internal Medicine Cardiovascular Disease
DX: I12.0 Hypertensive chronic kidney disease with stage 5 chronic kidney disease or end stage renal disease (principal); E11.22 Type 2 diabetes mellitus with diabetic chronic kidney disease; N18.6 End stage renal disease; I73.9 Peripheral vascular disease, unspecified
CPT/HCPCS: 78452; 93005; 96374; 96375; A9500; J0153

== ENCOUNTER → 2018-03-22 | Outpatient (CLI) | payer MEDICARE, MEDICAID ==
[~2018-03-22] MED LIST changes: -ADENOSINE 72 MG in GIVE UN-DILUTED 0 ML IV ONE; -ADENOSINE 90 MG/30 ML INJ IV ONE; +AMLO10TA12 PO; -AMLO10TA2 PO; +LOSA-46 PO; -LOSA50TA6 PO
[2018-03-22 09:29] LABS: Basophils # (auto) 0.1 uL; Basophils % (auto) 0.9 % (0.0-2.0); Eosinophils # (auto) 0.1 uL; Hematocrit 35.8 % (41.0-53.0); Hemoglobin 12.1 g/dL (13.5-17.5); Lymphocytes # (auto) 1.5 uL; Lymphocytes % (auto) 21.9 % (10.0-50.0); Mean Corpuscular Hemoglobin 30.2 pg (28.0-32.0); Mean Corpuscular Hgb Conc. 33.8 g/dL (32.0-36.0); Mean Corpuscular Volume 89.4 fL (80.0-100.0); Monocytes # (auto) 0.3 uL; Neutrophils # (auto) 4.9 uL; Neutrophils % (auto) 70.2 % (37.0-80.0); Nucleated Red Blood Cells % 0.1 %; Platelet Count (auto) 193 10^3/uL (140-450)
[2018-03-22 10:11] LABS: Calcium 7.9 mg/dL (8.5-10.1); Potassium 3.7 mmol/L (3.5-5.1)
[2018-03-22 10:16] LABS: BUN/Creatinine Ratio 9.5; Bilirubin, Total 0.7 mg/dL (0.2-1.0); Total Protein 8.6 g/dL (6.4-8.2)
[2018-03-22 12:20] LABS: Free T4 (Free Thyroxine) 1.15 ng/dL (0.89-1.76); Prostate Specific Antigen 2.98 ng/mL (0.0-4.0)
== END | disposition home or self-care (01) ==
LOC: LAB 09:10
PROVIDERS: ATTEND Internal Medicine
DX: E11.21 Type 2 diabetes mellitus with diabetic nephropathy (principal); E11.22 Type 2 diabetes mellitus with diabetic chronic kidney disease; I13.2 Hypertensive heart and chronic kidney disease with heart failure and with stage 5 chronic kidney disease, or end stage renal disease; I50.9 Heart failure, unspecified; N18.6 End stage renal disease; R35.0 Frequency of micturition
CPT/HCPCS: 36415; 80053; 80061; 83036; 84153; 84439; 84443; 84550; 85025; 85652

== ENCOUNTER → 2019-02-20 | Outpatient (CLI) | payer MEDICARE, MEDICAID, BC ==
[~2019-02-20] MED LIST changes: -AMLO10TA12 PO; +AMLO10TA13 PO; +EZET10TA22 PO; -EZET10TA6 PO; -LOSA-46 PO; +LOSA-69 PO
[2019-02-20 10:32] LABS: Basophils # (auto) 0.1 uL; Basophils % (auto) 0.8 % (0.0-2.0); Eosinophils # (auto) 0.3 uL; Hematocrit 36.5 % (41.0-53.0); Hemoglobin 12.6 g/dL (13.5-17.5); Lymphocytes # (auto) 1.7 uL; Lymphocytes % (auto) 20.4 % (10.0-50.0); Mean Corpuscular Hemoglobin 30.5 pg (28.0-32.0); Mean Corpuscular Hgb Conc. 34.6 g/dL (32.0-36.0); Mean Corpuscular Volume 88.1 fL (80.0-100.0); Monocytes # (auto) 0.6 uL; Monocytes % (auto) 6.8 % (0.0-12.0); Neutrophils # (auto) 5.7 uL; Nucleated Red Blood Cells % 0.1 %; Platelet Count (auto) 190 10^3/uL (140-450); Red Blood Cells 4.14 10^6/uL (4.5-5.90); Red Cell Distribution Width 13.8 % (11.8-14.3); White Blood Cell 8.4 10^3/uL (4.4-10.8)
[2019-02-20 10:34] LABS: Urine Bacteria NONE SEEN /hpf (None Seen); Urine Blood Negative /uL (Negative); Urine Mucus FEW (None Seen); Urine Specific Gravity 1.008 (1.001-1.035); Urine WBC 1 /hpf (0 - 3)
[2019-02-20 11:17] LABS: Albumin 3.7 g/dL (3.4-5.0); Anion Gap 6 (5-15); Blood Urea Nitrogen 28 mg/dL (7-18); Calcium 8.7 mg/dL (8.5-10.1); Carbon Dioxide 30 mmol/L (21-32); Chloride 102 mmol/L (98-107); Glucose 150 mg/dL (74-106); Potassium 4.3 mmol/L (3.5-5.1); Sodium 138 mmol/L (136-145)
[2019-02-20 11:22] LABS: Alanine Aminotransferase 30 U/L (16-61); Alkaline Phosphatase 188 U/L (45-117); Aspartate Aminotransferase 18 U/L (15-37); BUN/Creatinine Ratio 8.5; Bilirubin, Total 0.6 mg/dL (0.2-1.0); Cholesterol 244 mg/dL (< 200); GFR African American 26 mL/min; GFR Non-African American 21 mL/min; HDL Cholesterol 42 mg/dL (40-59); Total Protein 8.2 g/dL (6.4-8.2); Triglycerides 497 mg/dL (< 150)
[2019-02-20 11:36] LABS: Free T4 (Free Thyroxine) 0.93 ng/dL (0.89-1.76); Prostate Specific Antigen 1.79 ng/mL (0.0-4.0)
== END | disposition home or self-care (01) ==
LOC: LAB 10:11
PROVIDERS: ATTEND Internal Medicine
DX: I13.0 Hypertensive heart and chronic kidney disease with heart failure and stage 1 through stage 4 chronic kidney disease, or unspecified chronic kidney disease (principal); E11.21 Type 2 diabetes mellitus with diabetic nephropathy; E11.22 Type 2 diabetes mellitus with diabetic chronic kidney disease; N18.6 End stage renal disease; I50.9 Heart failure, unspecified
CPT/HCPCS: 36415; 80053; 80061; 81001; 82043; 82607; 83036; 84153; 84439; 84443; 85025; 85652

== ENCOUNTER → 2020-03-05 | Outpatient (CLI) | payer MEDICARE, MEDICAID ==
[2020-03-05 10:07] LABS: Basophils # (auto) 0 10 ^3/uL (0-0.2); Basophils % (auto) 0.6 % (0.0-2.0); Eosinophils # (auto) 0.2 10 ^3/uL (0-0.8); Eosinophils % (auto) 2.9 % (0.0-7.0); Hematocrit 34.1 % (41.0-53.0); Hemoglobin 11.5 g/dL (13.5-17.5); Lymphocytes # (auto) 1.6 10 ^3/uL (0.4-5.4); Lymphocytes % (auto) 21.7 % (10.0-50.0); Mean Corpuscular Hgb Conc. 33.7 g/dL (32.0-36.0); Mean Corpuscular Volume 86.2 fL (80.0-100.0); Monocytes # (auto) 0.4 10 ^3/uL (0-1.3); Monocytes % (auto) 5.5 % (0.0-12.0); Neutrophils # (auto) 5.2 10 ^3/uL (1.6-8.6); Neutrophils % (auto) 69.3 % (37.0-80.0); Platelet Count (auto) 222 10^3/uL (140-450); Red Blood Cells 3.96 10^6/uL (4.5-5.90); Red Cell Distribution Width 13.7 % (11.8-14.3); White Blood Cell 7.5 10^3/uL (4.4-10.8)
[2020-03-05 10:13] LABS: Urine Bacteria NONE SEEN /hpf (None Seen); Urine Blood Negative /uL (Negative); Urine Specific Gravity 1.015 (1.001-1.035); Urine WBC 3 /hpf (0 - 3)
[2020-03-05 10:17] LABS: Potassium 3.4 mmol/L (3.5-5.1)
[2020-03-05 10:20] LABS: Free T4 (Free Thyroxine) 1.18 ng/dL (0.89-1.76); Prostate Specific Antigen 1.88 ng/mL (0.0-4.0)
[2020-03-05 11:24] LABS: BUN/Creatinine Ratio 9.6; Bilirubin, Total 0.5 mg/dL (0.2-1.0); Calcium 7.7 mg/dL (8.5-10.1); Total Protein 7.4 g/dL (6.4-8.2); Uric Acid 2.5 mg/dL (3.5-7.2)
== END | disposition home or self-care (01) ==
LOC: LAB 09:11
PROVIDERS: ATTEND Internal Medicine
DX: Z12.5 Encounter for screening for malignant neoplasm of prostate (principal); I10 Essential (primary) hypertension; E11.40 Type 2 diabetes mellitus with diabetic neuropathy, unspecified; K21.9 Gastro-esophageal reflux disease without esophagitis
CPT/HCPCS: 36415; 80053; 80061; 81001; 82607; 83036; 83970; 84153; 84439; 84443; 84550; 85025; 85652

== ENCOUNTER → 2020-07-02 | Outpatient (CLI) | payer MEDICARE, MEDICAID ==
[~2020-07-02] MED LIST changes: +AMLO-496 PO; -AMLO10TA13 PO
[2020-07-02 11:12] LABS: Alanine Aminotransferase 22 U/L (16-61); Aspartate Aminotransferase 13 U/L (15-37); Cholesterol 212 mg/dL (< 200)
[2020-07-02 11:14] LABS: HDL Cholesterol 38 mg/dL (40-59); LDL Cholesterol 127 mg/dL (< 100); Triglycerides 280 mg/dL (< 150)
== END | disposition home or self-care (01) ==
LOC: LAB 10:23
PROVIDERS: ATTEND Internal Medicine
DX: E11.22 Type 2 diabetes mellitus with diabetic chronic kidney disease (principal); N18.6 End stage renal disease; E78.5 Hyperlipidemia, unspecified
CPT/HCPCS: 36415; 80061; 83036; 84450; 84460

== ENCOUNTER → 2020-09-25 | Outpatient (CLI) | payer MEDICARE, MEDICAID ==
[~2020-09-25] VITALS: Ht 175.3 cm; Wt 83.5 kg
[~2020-09-25] MED LIST changes: +ADENOSINE 70 MG in GIVE UN-DILUTED 0 ML IV ONE; +ADENOSINE 90 MG/30 ML INJ IV ONE
== END | disposition home or self-care (01) ==
LOC: Rad HDHVI 08:09
PROVIDERS: ATTEND Internal Medicine Cardiovascular Disease
DX: I25.10 Atherosclerotic heart disease of native coronary artery without angina pectoris (principal); I10 Essential (primary) hypertension; E78.5 Hyperlipidemia, unspecified; E11.9 Type 2 diabetes mellitus without complications; Z82.49 Family history of ischemic heart disease and other diseases of the circulatory system
CPT/HCPCS: 78452; 93005; 96374; 96375; A9500; J0153

== ENCOUNTER → 2021-02-05 | Day surgery (SDC) | payer MEDICARE, MEDICAID ==
[2021-02-02 11:48] LABS: Basophils # (auto) 0 10 ^3/uL (0-0.2); Basophils % (auto) 0.5 % (0.0-2.0); Eosinophils # (auto) 0.2 10 ^3/uL (0-0.8); Eosinophils % (auto) 2.2 % (0.0-7.0); Hematocrit 35.5 % (41.0-53.0); Hemoglobin 12.2 g/dL (13.5-17.5); Lymphocytes # (auto) 1.6 10 ^3/uL (0.4-5.4); Lymphocytes % (auto) 21.2 % (10.0-50.0); Mean Corpuscular Hemoglobin 30.4 pg (28.0-32.0); Mean Corpuscular Hgb Conc. 34.3 g/dL (32.0-36.0); Mean Corpuscular Volume 88.8 fL (80.0-100.0); Monocytes # (auto) 0.5 10 ^3/uL (0-1.3); Monocytes % (auto) 6.6 % (0.0-12.0); Neutrophils # (auto) 5.1 10 ^3/uL (1.6-8.6); Neutrophils % (auto) 69.5 % (37.0-80.0); Nucleated Red Blood Cells % 0.1 %; Red Cell Distribution Width 14.7 % (11.8-14.3); White Blood Cell 7.3 10^3/uL (4.4-10.8)
[2021-02-02 12:15] LABS: INR 1.05 (0.9-1.15); Partial Thromboplastin Time 29.1 sec (23.6-33.0)
[2021-02-02 13:57] LABS: Albumin 3.5 g/dL (3.4-5.0); BUN/Creatinine Ratio 5.7; Calcium 7.8 mg/dL (8.5-10.1); Potassium 4.5 mmol/L (3.5-5.1)
[2021-02-02 13:59] LABS: Bilirubin, Total 0.5 mg/dL (0.2-1.0); Total Protein 7.5 g/dL (6.4-8.2)
[~2021-02-05] MED LIST changes: -ADENOSINE 70 MG in GIVE UN-DILUTED 0 ML IV ONE; -ADENOSINE 90 MG/30 ML INJ IV ONE; +MIDAZOLAM HCL 5 MG/ML-1ML VIAL ONE; +SODIUM CHLORIDE LOCK 10 ML ONE; +diphenhdrAMINE HCL 50 MG/1 ML VL ONE; +fentaNYL CITRATE 100 MCG/2 ML VL ONE
[2021-02-05 10:30] VITALS: BP 115/66
== END | disposition home or self-care (01) ==
LOC: GI 08:06
PROVIDERS: ATTEND Internal Medicine Gastroenterology
DX: Z12.11 Encounter for screening for malignant neoplasm of colon (principal); K64.8 Other hemorrhoids; Z86.73 Personal history of transient ischemic attack (TIA), and cerebral infarction without residual deficits; E78.00 Pure hypercholesterolemia, unspecified; I11.0 Hypertensive heart disease with heart failure; E11.9 Type 2 diabetes mellitus without complications; F32.9 Major depressive disorder, single episode, unspecified; Z88.8 Allergy status to other drugs, medicaments and biological substances; Z80.9 Family history of malignant neoplasm, unspecified; Z79.899 Other long term (current) drug therapy; Z95.5 Presence of coronary angioplasty implant and graft; Z98.890 Other specified postprocedural states; Z20.822 Contact with and (suspected) exposure to COVID-19
CPT/HCPCS: 36415; 80053; 82962; 85025; 85610; 85730; G0121; J1200; J2250; J3010; J7030; U0003; G0500

== ENCOUNTER 2021-04-23 16:29 | Emergency (ER) | payer MEDICARE, MEDICAID ==
[~2021-04-23] VITALS: Ht 175.3 cm; Wt 82.6 kg
[~2021-04-23 16:29] MED LIST changes: -MIDAZOLAM HCL 5 MG/ML-1ML VIAL ONE; -SODIUM CHLORIDE LOCK 10 ML ONE; -diphenhdrAMINE HCL 50 MG/1 ML VL ONE; -fentaNYL CITRATE 100 MCG/2 ML VL ONE
[2021-04-23 19:09] LABS: Basophils # (auto) 0 10 ^3/uL (0-0.2); Basophils % (auto) 0.2 % (0.0-2.0); Eosinophils # (auto) 0 10 ^3/uL (0-0.8); Hemoglobin 8.1 g/dL (13.5-17.5); Lymphocytes # (auto) 0.5 10 ^3/uL (0.4-5.4); Neutrophils # (auto) 3.8 10 ^3/uL (1.6-8.6)
[2021-04-23 19:12] LABS: Hematocrit 22.9 % (41.0-53.0); Lymphocytes % (auto) 10.3 % (10.0-50.0); Mean Corpuscular Hgb Conc. 35.5 g/dL (32.0-36.0); Mean Corpuscular Volume 87.3 fL (80.0-100.0); Monocytes # (auto) 0.3 10 ^3/uL (0-1.3); Monocytes % (auto) 5.7 % (0.0-12.0); Neutrophils % (auto) 83.8 % (37.0-80.0); Red Blood Cells 2.63 10^6/uL (4.5-5.90); Red Cell Distribution Width 14.7 % (11.8-14.3); White Blood Cell 4.5 10^3/uL (4.4-10.8)
[2021-04-23 19:55] LABS: Alanine Aminotransferase 31 U/L (16-61); Albumin 2.6 g/dL (3.4-5.0); Anion Gap 10 (5-15); Aspartate Aminotransferase 32 U/L (15-37); Blood Alcohol < 3.0 mg/dL (0-5); Blood Urea Nitrogen 35 mg/dL (7-18); Calcium 6.9 mg/dL (8.5-10.1); Carbon Dioxide 30 mmol/L (21-32); Chloride 98 mmol/L (98-107); GFR African American 13 mL/min; GFR Non-African American 11 mL/min; Glucose 219 mg/dL (74-106); Magnesium 2.2 mg/dL (1.6-2.6); Potassium 4.4 mmol/L (3.5-5.1); Sodium 138 mmol/L (136-145)
[2021-04-23 19:58] LABS: Alkaline Phosphatase 106 U/L (45-117); Bilirubin, Total 0.6 mg/dL (0.2-1.0)
[2021-04-23 21:45] VITALS: BP 100/64
== END 2021-04-23 21:57 | disposition home or self-care (01) ==
LOC: EDBD 16:29 → ER 16:40
DX: F41.9 Anxiety disorder, unspecified (principal); E78.5 Hyperlipidemia, unspecified; E11.22 Type 2 diabetes mellitus with diabetic chronic kidney disease; I51.7 Cardiomegaly; I12.9 Hypertensive chronic kidney disease with stage 1 through stage 4 chronic kidney disease, or unspecified chronic kidney disease; J81.1 Chronic pulmonary edema; N18.9 Chronic kidney disease, unspecified; Z88.6 Allergy status to analgesic agent
CPT/HCPCS: 36415; 71045; 80053; 80320; 83735; 84100; 85025; 93005

== ENCOUNTER 2021-05-15 13:17 | Inpatient (IN) | payer MEDICARE, MEDICAID ==
[~2021-05-15] VITALS: Ht 175.3 cm; Wt 80.5 kg
[2021-05-15 14:30] LABS: Hematocrit 31.4 % (41.0-53.0); Hemoglobin 10.5 g/dL (13.5-17.5); Mean Corpuscular Hemoglobin 30.7 pg (28.0-32.0); Mean Corpuscular Hgb Conc. 33.5 g/dL (32.0-36.0); Mean Corpuscular Volume 91.7 fL (80.0-100.0); Red Blood Cells 3.42 10^6/uL (4.5-5.90); Red Cell Distribution Width 15.6 % (11.8-14.3); White Blood Cell 7.9 10^3/uL (4.4-10.8)
[2021-05-15 14:59] LABS: Albumin 3.2 g/dL (3.4-5.0); Calcium 8.5 mg/dL (8.5-10.1); Potassium 4.5 mmol/L (3.5-5.1)
[2021-05-15 15:07] LABS: Band Neutrophils % (manual) 0; Basophils % (manual) 0 (0.0-2.0); Eosinophils % (manual) 0 (0-7); Metamyelocytes % 0
[2021-05-15 15:08] LABS: Blast Cells 0; Myelocytes % 0; Promyelocytes % 0; Reactive Lymphocytes 0
[2021-05-15 15:18] LABS: BUN/Creatinine Ratio 6.4; Bilirubin, Total 1.1 mg/dL (0.2-1.0); CRP High Sensitivity 8.26 mg/dL (< 0.3); Total Protein 7.7 g/dL (6.4-8.2)
[2021-05-15 15:56] LABS: Lymphocytes % (manual) 17 (10.0-50.0); Monocytes % (manual) 3 (0-12)
[2021-05-15] MEDS ORDERED: ACETAMINOPHEN 325 MG TAB PO PRN ×2 (16:15)
[2021-05-15] MEDS ORDERED: MORPHINE SULFATE INJECTION 2 MG/ML SYRG IV PRN (16:15)
[2021-05-15] MEDS ORDERED: NITROGLYCERIN 0.4 MG SL TAB SL PRN (16:15)
[2021-05-15] MEDS ORDERED: FUROSEMIDE 40 MG/4 ML VIAL ONE (23:13)
[2021-05-16] VITALS (12 sets, daily range): BP systolic 87–132; BP diastolic 60–83
[2021-05-16] MEDS ORDERED: guaiFENesin-DM 100/10mg/5ml SYR PO PRN (02:45)
[2021-05-16] MEDS ORDERED: AMLO-489 PO (03:10)
[2021-05-16] MEDS ORDERED: CLON0.1T PO (03:12)
[2021-05-16] MEDS ORDERED: PANT40T PO (03:12)
[2021-05-16] MEDS ORDERED: BUME1TAB3 PO (03:12)
[2021-05-16] MEDS ORDERED: cloNIDine HCL 0.1 MG TAB PO PRN (08:00)
[2021-05-16 08:07] LABS: Basophils # (auto) 0 10 ^3/uL (0-0.2); Basophils % (auto) 0.4 % (0.0-2.0); Eosinophils # (auto) 0 10 ^3/uL (0-0.8); Hematocrit 30.8 % (41.0-53.0); Hemoglobin 10.1 g/dL (13.5-17.5); Lymphocytes # (auto) 0.7 10 ^3/uL (0.4-5.4); Lymphocytes % (auto) 6.5 % (10.0-50.0); Mean Corpuscular Hemoglobin 30.4 pg (28.0-32.0); Mean Corpuscular Hgb Conc. 32.9 g/dL (32.0-36.0); Mean Corpuscular Volume 92.5 fL (80.0-100.0); Monocytes # (auto) 0.7 10 ^3/uL (0-1.3); Monocytes % (auto) 6.7 % (0.0-12.0); Neutrophils % (auto) 86.4 % (37.0-80.0); Red Blood Cells 3.33 10^6/uL (4.5-5.90); Red Cell Distribution Width 15.4 % (11.8-14.3); White Blood Cell 10.4 10^3/uL (4.4-10.8)
[2021-05-16] MEDS ORDERED: DEXTROSE (50%) 50ML SYRG IV PRN (08:15)
[2021-05-16 08:21] LABS: Calcium 8.7 mg/dL (8.5-10.1); Potassium 4.9 mmol/L (3.5-5.1)
[2021-05-16 08:23] LABS: BUN/Creatinine Ratio 8.4
[2021-05-16 08:26] LABS: Bilirubin, Total 1.5 mg/dL (0.2-1.0); Total Protein 7.3 g/dL (6.4-8.2)
[2021-05-16] MEDS ORDERED: FUROSEMIDE 40 MG/4 ML VIAL IV SCH (10:00)
[2021-05-16] MEDS: cefTRIAXone 1GM/50ML D5W 50 ML IV SCH (10:20)
[2021-05-16] MEDS: DexAMETHasone SOD PHOS 10MG/1ML VIAL INJ IV SCH (10:20)
[2021-05-16] MEDS: ZINC SULFATE 220mg CAP or TAB PO SCH (10:21)
[2021-05-16] MEDS: METOPROLOL TARTRATE 50 MG TAB PO SCH ×2 (10:22→21:34)
[2021-05-16] MEDS: LOSARTAN POTASSIUM 50 MG TAB PO SCH (10:22)
[2021-05-16] MEDS: ENOXAPARIN SOD 30 MG/0.3 ML SYRINGE SC SCH (10:23)
[2021-05-16] MEDS: amLODIPine BESYLATE 5 MG TAB PO SCH (10:23)
[2021-05-16] MEDS: CHOLECALCIFEROL (VITD3) 2,000 UNIT CAP/TAB PO SCH (10:23)
[2021-05-16] MEDS: ASCORBIC ACID 1,000 MG TAB PO SCH (10:23)
[2021-05-16] MEDS: AZITHROMYCIN 500MG/ 250ML 250 ML IV SCH (12:10)
[2021-05-16] MEDS: InsuLIN REG 1unit/0.01ml Soln (100units/ml) SC SCH ×3 (13:04→21:49)
[2021-05-16] MEDS: ACCU-CHEK COMFORT CURVE STRIP VI SCH ×3 (13:04→21:49)
[2021-05-16] MEDS: GLIMEPIRIDE 2 MG TAB PO SCH (13:09)
[2021-05-16] MEDS: metroNIDAZOLE 500 MG TAB PO SCH ×3 (13:10→23:07)
[2021-05-16] MEDS: ATORVASTATIN 20 MG TAB PO SCH (21:33)
[2021-05-17 05:17] VITALS: BP 130/78
[2021-05-17] MEDS: ACCU-CHEK COMFORT CURVE STRIP VI SCH ×4 (06:53→22:35)
[2021-05-17] MEDS: metroNIDAZOLE 500 MG TAB PO SCH ×3 (06:54→18:04)
[2021-05-17] MEDS: InsuLIN REG 1unit/0.01ml Soln (100units/ml) SC SCH ×4 (06:54→22:35)
[2021-05-17] MEDS: GLIMEPIRIDE 2 MG TAB PO SCH (08:09)
[2021-05-17 08:30] VITALS: BP 122/78
[2021-05-17] MEDS: cefTRIAXone 1GM/50ML D5W 50 ML IV SCH (08:53)
[2021-05-17] MEDS ORDERED: FUROSEMIDE 40 MG/4 ML VIAL IV SCH (10:01)
[2021-05-17] MEDS: DexAMETHasone SOD PHOS 10MG/1ML VIAL INJ IV SCH (10:09)
[2021-05-17] MEDS: AZITHROMYCIN 500MG/ 250ML 250 ML IV SCH (10:10)
[2021-05-17] MEDS: LOSARTAN POTASSIUM 50 MG TAB PO SCH (10:11)
[2021-05-17] MEDS: ZINC SULFATE 220mg CAP or TAB PO SCH (10:11)
[2021-05-17] MEDS: amLODIPine BESYLATE 5 MG TAB PO SCH (10:12)
[2021-05-17] MEDS: METOPROLOL TARTRATE 50 MG TAB PO SCH ×3 (10:12→23:35)
[2021-05-17] MEDS: ENOXAPARIN SOD 30 MG/0.3 ML SYRINGE SC SCH (10:13)
[2021-05-17] MEDS: ASCORBIC ACID 1,000 MG TAB PO SCH (10:13)
[2021-05-17] MEDS: CHOLECALCIFEROL (VITD3) 2,000 UNIT CAP/TAB PO SCH (10:13)
[2021-05-17] MEDS ORDERED: BUMETANIDE 1 MG TAB PO ONE (11:45)
[2021-05-17 13:00] VITALS: BP 103/71
[2021-05-17 17:00] VITALS: BP 117/71
[2021-05-17 22:00] VITALS: BP 119/79
[2021-05-17] MEDS: ATORVASTATIN 20 MG TAB PO SCH (22:35)
[2021-05-18 05:00] VITALS: BP 131/83
[2021-05-18] MEDS: InsuLIN REG 1unit/0.01ml Soln (100units/ml) SC SCH ×4 (05:45→22:03)
[2021-05-18] MEDS: ACCU-CHEK COMFORT CURVE STRIP VI SCH ×4 (05:45→21:57)
[2021-05-18 09:21] VITALS: BP 127/80
[2021-05-18] MEDS: GLIMEPIRIDE 2 MG TAB PO SCH (09:38)
[2021-05-18] MEDS: DexAMETHasone SOD PHOS 10MG/1ML VIAL INJ IV SCH (09:38)
[2021-05-18] MEDS: ZINC SULFATE 220mg CAP or TAB PO SCH (09:39)
[2021-05-18] MEDS: AZITHROMYCIN 500MG/ 250ML 250 ML IV SCH (09:39)
[2021-05-18] MEDS: BUMETANIDE 1 MG TAB PO SCH (09:40)
[2021-05-18] MEDS: METOPROLOL TARTRATE 50 MG TAB PO SCH ×2 (09:40→21:54)
[2021-05-18] MEDS: LOSARTAN POTASSIUM 50 MG TAB PO SCH (09:40)
[2021-05-18] MEDS: amLODIPine BESYLATE 5 MG TAB PO SCH (09:41)
[2021-05-18] MEDS: CHOLECALCIFEROL (VITD3) 2,000 UNIT CAP/TAB PO SCH (09:42)
[2021-05-18] MEDS: ENOXAPARIN SOD 30 MG/0.3 ML SYRINGE SC SCH (09:42)
[2021-05-18] MEDS: ASCORBIC ACID 1,000 MG TAB PO SCH (09:42)
[2021-05-18] MEDS: cefTRIAXone 1GM/50ML D5W 50 ML IV SCH (10:32)
[2021-05-18] MEDS ORDERED: ASPirin 81 mg TAB PO ONE (10:45)
[2021-05-18 13:00] VITALS: BP 113/79
[2021-05-18] MEDS ORDERED: SODIUM CHL 0.9% 1000 ML BAG XX ONE (13:45)
[2021-05-18] MEDS ORDERED: LEVEMIR SC (14:36)
[2021-05-18 15:20] LABS: Basophils # (auto) 0 10 ^3/uL (0-0.2); Basophils % (auto) 0.1 % (0.0-2.0); Eosinophils # (auto) 0 10 ^3/uL (0-0.8); Hemoglobin 9.5 g/dL (13.5-17.5); Lymphocytes # (auto) 0.5 10 ^3/uL (0.4-5.4); Lymphocytes % (auto) 5.5 % (10.0-50.0); Mean Corpuscular Hemoglobin 30.9 pg (28.0-32.0); Mean Corpuscular Hgb Conc. 33.9 g/dL (32.0-36.0); Mean Corpuscular Volume 91.2 fL (80.0-100.0); Monocytes # (auto) 0.1 10 ^3/uL (0-1.3); Monocytes % (auto) 1.5 % (0.0-12.0); Neutrophils # (auto) 8.2 10 ^3/uL (1.6-8.6); Neutrophils % (auto) 92.9 % (37.0-80.0); Red Blood Cells 3.07 10^6/uL (4.5-5.90); Red Cell Distribution Width 15.3 % (11.8-14.3); White Blood Cell 8.8 10^3/uL (4.4-10.8)
[2021-05-18 17:00] VITALS: BP 125/78
[2021-05-18] MEDS ORDERED: EPOETIN ALFA-EPBX 10,000 UNIT/1ML VIAL SC ONE (21:00)
[2021-05-18] MEDS: ATORVASTATIN 20 MG TAB PO SCH (21:57)
[2021-05-18 22:00] VITALS: BP 132/77
[2021-05-19 05:00] VITALS: BP 137/55
[2021-05-19] MEDS: InsuLIN REG 1unit/0.01ml Soln (100units/ml) SC SCH ×3 (06:12→17:00)
[2021-05-19] MEDS: ACCU-CHEK COMFORT CURVE STRIP VI SCH ×3 (06:12→17:00)
[2021-05-19 09:00] VITALS: BP 133/81
[2021-05-19] MEDS ORDERED: ASPirin 81 mg TAB PO SCH (10:00)
[2021-05-19] MEDS: GLIMEPIRIDE 2 MG TAB PO SCH (10:19)
[2021-05-19] MEDS: BUMETANIDE 1 MG TAB PO SCH (10:20)
[2021-05-19] MEDS: LOSARTAN POTASSIUM 50 MG TAB PO SCH (10:20)
[2021-05-19] MEDS: amLODIPine BESYLATE 5 MG TAB PO SCH (10:21)
[2021-05-19] MEDS: METOPROLOL TARTRATE 50 MG TAB PO SCH (10:21)
[2021-05-19] MEDS: ENOXAPARIN SOD 30 MG/0.3 ML SYRINGE SC SCH (10:21)
[2021-05-19 11:29] VITALS: BP 133/81
[2021-05-19 13:00] VITALS: BP 138/81
[2021-05-19 17:00] VITALS: BP 140/81
[2021-05-20] MEDS ORDERED: SODIUM CHL 0.9% 1000 ML BAG XX ONE (07:00)
[2021-05-20] MEDS ORDERED: EPOETIN ALFA-EPBX 10,000 UNIT/1ML VIAL SC ONE (21:00)
[2021-05-21 16:40] LABS: Hepatitis A Ab IgM Negative; Hepatitis B Core IgM Negative; Hepatitis C Antibody Negative (Negative)
== END 2021-05-19 18:00 | disposition home or self-care (01) | DRG 280 ==
LOC: ER 13:17 → TELE 16:10 → TELE-CENTR 05-16 02:00 → TELE 05-16 02:01 → TELE-CENTR 05-16 02:02
PROVIDERS: ADMIT Internal Medicine; ATTEND Internal Medicine
PROC: 5A09357 Assistance with Respiratory Ventilation, Less than 24 Consecutive Hours, Continuous Positive Airway Pressure (ICD-10-PCS; 2021-05-15)
PROC: 5A1D70Z Performance of Urinary Filtration, Intermittent, Less than 6 Hours Per Day (ICD-10-PCS; principal; 2021-05-18)
DX: I13.2 Hypertensive heart and chronic kidney disease with heart failure and with stage 5 chronic kidney disease, or end stage renal disease (principal); N18.6 End stage renal disease; I21.A1 Myocardial infarction type 2; J96.01 Acute respiratory failure with hypoxia; I50.43 Acute on chronic combined systolic (congestive) and diastolic (congestive) heart failure; I25.10 Atherosclerotic heart disease of native coronary artery without angina pectoris; E66.9 Obesity, unspecified; Z20.822 Contact with and (suspected) exposure to COVID-19; E11.22 Type 2 diabetes mellitus with diabetic chronic kidney disease; E11.51 Type 2 diabetes mellitus with diabetic peripheral angiopathy without gangrene; D63.1 Anemia in chronic kidney disease; E78.5 Hyperlipidemia, unspecified; Z99.2 Dependence on renal dialysis; Z68.26 Body mass index [BMI] 26.0-26.9, adult; Z82.49 Family history of ischemic heart disease and other diseases of the circulatory system; Z83.3 Family history of diabetes mellitus; Z86.16 Personal history of COVID-19; Z86.73 Personal history of transient ischemic attack (TIA), and cerebral infarction without residual deficits; Z79.84 Long term (current) use of oral hypoglycemic drugs
CPT/HCPCS: 36415; 36600; 71045; 71250; 78582; 80053; 80074; 82728; 82805; 82962; 83735; 83880; 84484; 85007; 85025; 85027; 85379; 86141; 87081; 87426; 87493; 90935; 93005; 93306; 94660; G0378; J0696; J1100; J1815

== ENCOUNTER → 2021-06-02 | Outpatient (CLI) | payer MEDICARE, MEDICAID ==
[~2021-06-02] MED LIST changes: +AMLO-489 PO; -AMLO-496 PO; +BUME1TAB3 PO; +CLON0.1T PO; +LEVEMIR SC; +PANT40T PO
[2021-06-02 14:06] LABS: Basophils # (auto) 0 10 ^3/uL (0-0.2); Basophils % (auto) 1.5 % (0.0-2.0); Eosinophils # (auto) 0.1 10 ^3/uL (0-0.8); Eosinophils % (auto) 1.8 % (0.0-7.0); Hematocrit 28.4 % (41.0-53.0); Hemoglobin 9.8 g/dL (13.5-17.5); Lymphocytes # (auto) 0.6 10 ^3/uL (0.4-5.4); Lymphocytes % (auto) 18.3 % (10.0-50.0); Mean Corpuscular Hemoglobin 31.8 pg (28.0-32.0); Mean Corpuscular Hgb Conc. 34.4 g/dL (32.0-36.0); Mean Corpuscular Volume 92.6 fL (80.0-100.0); Monocytes # (auto) 0.3 10 ^3/uL (0-1.3); Monocytes % (auto) 10.7 % (0.0-12.0); Neutrophils # (auto) 2.1 10 ^3/uL (1.6-8.6); Neutrophils % (auto) 67.7 % (37.0-80.0); Nucleated Red Blood Cells % 0.4 %; Red Blood Cells 3.07 10^6/uL (4.5-5.90); Red Cell Distribution Width 15.4 % (11.8-14.3); White Blood Cell 3.2 10^3/uL (4.4-10.8)
[2021-06-02 14:10] LABS: Potassium 4.4 mmol/L (3.5-5.1)
[2021-06-02 14:37] LABS: Albumin 2.6 g/dL (3.4-5.0); BUN/Creatinine Ratio 7.6; Bilirubin, Total 0.7 mg/dL (0.2-1.0); Calcium 8.6 mg/dL (8.5-10.1); Phosphorus 5.4 mg/dL (2.5-4.90); Total Protein 6.8 g/dL (6.4-8.2); Uric Acid 4.4 mg/dL (3.5-7.2)
[2021-06-02 14:58] LABS: Free T4 (Free Thyroxine) 1.22 ng/dL (0.89-1.76); Prostate Specific Antigen 2.14 ng/mL (0.0-4.0)
[2021-06-03 13:29] LABS: Urine Bacteria NONE SEEN /hpf (None Seen); Urine Blood Negative /uL (Negative); Urine Specific Gravity 1.012 (1.001-1.035); Urine WBC 1 /hpf (0 - 3)
== END | disposition home or self-care (01) ==
LOC: LAB 09:02
PROVIDERS: ATTEND Internal Medicine
DX: Z12.5 Encounter for screening for malignant neoplasm of prostate (principal); E11.9 Type 2 diabetes mellitus without complications; I10 Essential (primary) hypertension; Z99.2 Dependence on renal dialysis
CPT/HCPCS: 36415; 80053; 80061; 81001; 82607; 83036; 83970; 84100; 84153; 84439; 84443; 84550; 85025

== ENCOUNTER → 2021-06-17 | Outpatient (CLI) | payer MEDICARE, MEDICAID | END | disposition home or self-care (01) | LOC: Rad HDHVI 16:00 | PROVIDERS: ATTEND Internal Medicine Cardiovascular Disease | DX: I70.203 Unspecified atherosclerosis of native arteries of extremities, bilateral legs (principal) | CPT/HCPCS: 93925 ==

== ENCOUNTER → 2021-07-24 | Outpatient (CLI) | payer MEDICARE, MEDICAID ==
[~2021-07-24] MED LIST changes: +ATOR40TA52 PO; +CARV6.2551 PO; +SACU1TAB PO
[2021-07-24 09:15] VITALS: BP 140/72
[2021-07-24 09:32] VITALS: BP 131/70
[2021-07-24 11:17] LABS: Basophils # (auto) 0 10 ^3/uL (0-0.2); Basophils % (auto) 0.8 % (0.0-2.0); Eosinophils # (auto) 0.7 10 ^3/uL (0-0.8); Eosinophils % (auto) 12.6 % (0.0-7.0); Hematocrit 36.9 % (41.0-53.0); Hemoglobin 12.4 g/dL (13.5-17.5); Lymphocytes # (auto) 1.2 10 ^3/uL (0.4-5.4); Lymphocytes % (auto) 21.5 % (10.0-50.0); Mean Corpuscular Hgb Conc. 33.5 g/dL (32.0-36.0); Mean Corpuscular Volume 95.4 fL (80.0-100.0); Monocytes # (auto) 0.5 10 ^3/uL (0-1.3); Monocytes % (auto) 8.5 % (0.0-12.0); Neutrophils # (auto) 3.3 10 ^3/uL (1.6-8.6); Neutrophils % (auto) 56.6 % (37.0-80.0); Nucleated Red Blood Cells % 0.1 %; Red Blood Cells 3.87 10^6/uL (4.5-5.90); Red Cell Distribution Width 16.2 % (11.8-14.3); White Blood Cell 5.8 10^3/uL (4.4-10.8)
[2021-07-24 11:38] LABS: INR 1.1 (0.9-1.15); Partial Thromboplastin Time 30.1 sec (23.6-33.0)
[2021-07-24 11:56] LABS: Potassium 4.1 mmol/L (3.5-5.1)
[2021-07-24 12:05] LABS: BUN/Creatinine Ratio 7.7; Calcium 7.9 mg/dL (8.5-10.1)
== END | disposition home or self-care (01) ==
LOC: LAB 09:03
PROVIDERS: ATTEND Internal Medicine Cardiovascular Disease
DX: Z01.812 Encounter for preprocedural laboratory examination (principal); I10 Essential (primary) hypertension; E11.9 Type 2 diabetes mellitus without complications; I34.0 Nonrheumatic mitral (valve) insufficiency; R94.31 Abnormal electrocardiogram [ECG] [EKG]
CPT/HCPCS: 36415; 80048; 85025; 85610; 85730; 93005; G0463

== ENCOUNTER 2021-07-28 11:58 | Inpatient (IN) | payer MEDICARE, MEDICAID ==
[~2021-07-28] VITALS: Ht 175.3 cm; Wt 84.5 kg
[~2021-07-28 11:58] MED LIST changes: -ATO40T PO; -EZET10TA22 PO; -LOSA-69 PO; -METO-158 PO; -PANT40T PO
[2021-07-28] MEDS ORDERED: MIDAZOLAM HCL 2MG/2ML 2ml VIAL (1mg/ml) IV ONE (12:30)
[2021-07-28] MEDS ORDERED: IODIXANOL 320MG/ML 100ML BTL IV ONE (14:43)
[2021-07-28] MEDS ORDERED: IOHEXOL 350 MG/ML 100ML IJ ONE (14:43)
[2021-07-28] MEDS ORDERED: LIDOCAINE 2%HCL (LOCAL ANESTH.) INJ 10ml MDV ONE ×2 (14:43→14:49)
[2021-07-28] MEDS ORDERED: ACETAMINOPHEN 500 MG TAB PO PRN (15:30)
[2021-07-28] MEDS ORDERED: NITROGLYCERIN 0.4 MG SL TAB SL PRN (15:30)
[2021-07-28] MEDS ORDERED: HYDROcodone-ACET 5/325MG TAB PO PRN (15:30)
[2021-07-28] MEDS ORDERED: MORPHINE SULFATE INJECTION 2 MG/ML SYRG IV PRN (15:30)
[2021-07-28] MEDS ORDERED: DEXTROSE (50%) 50ML SYRG IV PRN (15:45)
[2021-07-28] MEDS: ACCU-CHEK COMFORT CURVE STRIP VI SCH ×2 (17:00→22:27)
[2021-07-28] MEDS: CARVEDILOL 3.125 MG TAB PO SCH (17:39)
[2021-07-28 17:55] VITALS: BP 110/65
[2021-07-28] MEDS: InsuLIN REG 1unit/0.01ml Soln (100units/ml) SC SCH (18:02)
[2021-07-28 22:00] VITALS: BP 145/72
[2021-07-28] MEDS ORDERED: ATORVASTATIN 20 MG TAB PO SCH (22:00)
[2021-07-28] MEDS ORDERED: INSULIN LANTUS (GLARGINE) 1 /0.01ml (100units/ml) SC SCH (22:00)
[2021-07-28] MEDS ORDERED: InsuLIN REG 1unit/0.01ml Soln (100units/ml) SC SCH (22:00)
[2021-07-28] MEDS: GLIMEPIRIDE 2 MG TAB PO SCH (22:25)
[2021-07-28] MEDS: SACUBITRIL-VALSARTAN 24mg/26mg TAB PO SCH (22:26)
[2021-07-28] MEDS: cloNIDine HCL 0.1 MG TAB PO SCH (22:26)
[2021-07-29 05:00] VITALS: BP 138/71
[2021-07-29 05:21] LABS: Basophils # (auto) 0.1 10 ^3/uL (0-0.2); Eosinophils # (auto) 0.5 10 ^3/uL (0-0.8); Eosinophils % (auto) 9.2 % (0.0-7.0); Hematocrit 33.3 % (41.0-53.0); Hemoglobin 11.3 g/dL (13.5-17.5); Lymphocytes # (auto) 1.5 10 ^3/uL (0.4-5.4); Lymphocytes % (auto) 29.6 % (10.0-50.0); Mean Corpuscular Hemoglobin 32.3 pg (28.0-32.0); Mean Corpuscular Hgb Conc. 33.9 g/dL (32.0-36.0); Mean Corpuscular Volume 95.2 fL (80.0-100.0); Monocytes # (auto) 0.5 10 ^3/uL (0-1.3); Neutrophils # (auto) 2.5 10 ^3/uL (1.6-8.6); Neutrophils % (auto) 50.2 % (37.0-80.0); Nucleated Red Blood Cells % 0.1 %; Red Cell Distribution Width 15.9 % (11.8-14.3); White Blood Cell 4.9 10^3/uL (4.4-10.8)
[2021-07-29 05:36] LABS: INR 1.13 (0.9-1.15)
[2021-07-29] MEDS: ACCU-CHEK COMFORT CURVE STRIP VI SCH ×3 (05:52→17:00)
[2021-07-29] MEDS: InsuLIN REG 1unit/0.01ml Soln (100units/ml) SC SCH ×3 (05:52→17:45)
[2021-07-29] MEDS: CARVEDILOL 3.125 MG TAB PO SCH ×2 (05:53→17:30)
[2021-07-29] MEDS: cloNIDine HCL 0.1 MG TAB PO SCH ×2 (05:54→14:00)
[2021-07-29 06:13] LABS: BUN/Creatinine Ratio 9.7
[2021-07-29 06:16] LABS: Bilirubin, Total 0.4 mg/dL (0.2-1.0); Total Protein 6.4 g/dL (6.4-8.2)
[2021-07-29 06:30] LABS: Potassium 5.7 mmol/L (3.5-5.1)
[2021-07-29 09:00] VITALS: BP 136/70
[2021-07-29] MEDS: SACUBITRIL-VALSARTAN 24mg/26mg TAB PO SCH (09:58)
[2021-07-29] MEDS ORDERED: CLOPIDOGREL BISULFATE 75 MG TAB PO SCH (10:00)
[2021-07-29] MEDS ORDERED: amLODIPine BESYLATE 5 MG TAB PO SCH (10:00)
[2021-07-29] MEDS ORDERED: BUMETANIDE 1 MG TAB PO SCH (10:00)
[2021-07-29] MEDS: GLIMEPIRIDE 2 MG TAB PO SCH (10:11)
[2021-07-29] MEDS ORDERED: SODIUM CHL 0.9% 1000 ML BAG XX ONE (12:15)
[2021-07-29 13:00] VITALS: BP 132/70
[2021-07-29] MEDS ORDERED: SODIUM ZIRCONIUM CYCL 10 GM PAK PO ONE (14:30)
[2021-07-29 17:00] VITALS: BP 104/54
[2021-07-29 18:09] VITALS: BP 104/54
== END 2021-07-29 18:50 | disposition home or self-care (01) | DRG 286 ==
LOC: CATH 11:58 → TELE 15:29 → TELE-EAST 17:07
PROVIDERS: ADMIT Internal Medicine Cardiovascular Disease; ATTEND Internal Medicine Cardiovascular Disease
PROC: B24BZZ4 Ultrasonography of Heart with Aorta, Transesophageal (ICD-10-PCS; principal; 2021-07-28)
PROC: 4A023N7 Measurement of Cardiac Sampling and Pressure, Left Heart, Percutaneous Approach (ICD-10-PCS; 2021-07-28)
PROC: B211YZZ Fluoroscopy of Multiple Coronary Arteries using Other Contrast (ICD-10-PCS; 2021-07-28)
PROC: B215YZZ Fluoroscopy of Left Heart using Other Contrast (ICD-10-PCS; 2021-07-28)
PROC: 4A033BC Measurement of Arterial Pressure, Coronary, Percutaneous Approach (ICD-10-PCS; 2021-07-28)
PROC: B41GYZZ Fluoroscopy of Left Lower Extremity Arteries using Other Contrast (ICD-10-PCS; 2021-07-28)
PROC: B41FYZZ Fluoroscopy of Right Lower Extremity Arteries using Other Contrast (ICD-10-PCS; 2021-07-28)
PROC: 5A1D70Z Performance of Urinary Filtration, Intermittent, Less than 6 Hours Per Day (ICD-10-PCS; 2021-07-29)
DX: I13.2 Hypertensive heart and chronic kidney disease with heart failure and with stage 5 chronic kidney disease, or end stage renal disease (principal); N18.6 End stage renal disease; I50.21 Acute systolic (congestive) heart failure; D63.1 Anemia in chronic kidney disease; E11.40 Type 2 diabetes mellitus with diabetic neuropathy, unspecified; E11.51 Type 2 diabetes mellitus with diabetic peripheral angiopathy without gangrene; E78.5 Hyperlipidemia, unspecified; E87.5 Hyperkalemia; I25.10 Atherosclerotic heart disease of native coronary artery without angina pectoris; E11.21 Type 2 diabetes mellitus with diabetic nephropathy; Z20.822 Contact with and (suspected) exposure to COVID-19; Z99.2 Dependence on renal dialysis
CPT/HCPCS: 36415; 75716; 80053; 82306; 82962; 83036; 83880; 83970; 84100; 84132; 84484; 85025; 85610; 85730; 90935; 93312; 93458; 93571; 99152; G0378; J1815; J2001; J2250; Q9967

== ENCOUNTER → 2021-08-05 | Outpatient (CLI) | payer MEDICARE, MEDICAID | END | disposition home or self-care (01) | LOC: Rad HDHVI 12:57 | PROVIDERS: ATTEND Internal Medicine Cardiovascular Disease | DX: I65.22 Occlusion and stenosis of left carotid artery (principal); I42.8 Other cardiomyopathies; I10 Essential (primary) hypertension | CPT/HCPCS: 93880 ==

== ENCOUNTER → 2021-11-05 | Outpatient (CLI) | payer MEDICARE, MEDICAID, BC ==
[2021-11-05 09:24] LABS: Basophils # (auto) 0.1 10 ^3/uL (0-0.2); Basophils % (auto) 0.8 % (0.0-2.0); Eosinophils # (auto) 0.5 10 ^3/uL (0-0.8); Eosinophils % (auto) 6.6 % (0.0-7.0); Hematocrit 39.8 % (41.0-53.0); Hemoglobin 12.8 g/dL (13.5-17.5); Lymphocytes # (auto) 1.4 10 ^3/uL (0.4-5.4); Lymphocytes % (auto) 20.8 % (10.0-50.0); Mean Corpuscular Hemoglobin 30.1 pg (28.0-32.0); Monocytes # (auto) 0.7 10 ^3/uL (0-1.3); Monocytes % (auto) 9.8 % (0.0-12.0); Neutrophils # (auto) 4.3 10 ^3/uL (1.6-8.6); Nucleated Red Blood Cells % 0.1 %; Red Blood Cells 4.24 10^6/uL (4.5-5.90); Red Cell Distribution Width 16.6 % (11.8-14.3); Urine Blood Negative /uL (Negative); Urine Specific Gravity 1.012 (1.001-1.035)
[2021-11-05 09:31] LABS: Albumin 3.5 g/dL (3.4-5.0); Calcium 8.7 mg/dL (8.5-10.1); Potassium 4.9 mmol/L (3.5-5.1)
[2021-11-05 09:35] LABS: BUN/Creatinine Ratio 7.1; Bilirubin, Total 0.6 mg/dL (0.2-1.0); Total Protein 7.9 g/dL (6.4-8.2)
[2021-11-05 09:38] LABS: Free T4 (Free Thyroxine) 0.95 ng/dL (0.89-1.76)
[2021-11-05 09:42] LABS: Prostate Specific Antigen 2.54 ng/mL (0.0-4.0)
== END | disposition home or self-care (01) ==
LOC: LAB 08:00
PROVIDERS: ATTEND Internal Medicine Cardiovascular Disease
DX: C61 Malignant neoplasm of prostate (principal); D64.9 Anemia, unspecified; E11.9 Type 2 diabetes mellitus without complications; D51.3 Other dietary vitamin B12 deficiency anemia; E55.9 Vitamin D deficiency, unspecified; I10 Essential (primary) hypertension; R00.2 Palpitations; R53.1 Weakness; R30.0 Dysuria
CPT/HCPCS: 36415; 80053; 80061; 81003; 82306; 82607; 83036; 84153; 84403; 84439; 84443; 85025

== ENCOUNTER → 2021-11-10 | Outpatient (CLI) | payer MEDICARE, MEDICAID, BC | END | disposition home or self-care (01) | LOC: Rad HDHVI 10:52 | PROVIDERS: ATTEND Internal Medicine Cardiovascular Disease | DX: I34.0 Nonrheumatic mitral (valve) insufficiency (principal); R07.89 Other chest pain; I10 Essential (primary) hypertension | CPT/HCPCS: 93306 ==

== ENCOUNTER → 2021-11-13 | Outpatient (CLI) | payer MEDICARE, MEDICAID, BC ==
[~2021-11-13] VITALS: Ht 175.3 cm; Wt 80.3 kg
[~2021-11-13] MED LIST changes: +ADENOSINE 67 MG in GIVE UN-DILUTED 0 ML IV ONE; +ADENOSINE 90 MG/30 ML INJ IV ONE
== END | disposition home or self-care (01) ==
LOC: Rad HDHVI 09:17
PROVIDERS: ATTEND Internal Medicine Cardiovascular Disease
DX: I25.10 Atherosclerotic heart disease of native coronary artery without angina pectoris (principal); I10 Essential (primary) hypertension; E78.5 Hyperlipidemia, unspecified; E11.9 Type 2 diabetes mellitus without complications; Z95.1 Presence of aortocoronary bypass graft; Z82.49 Family history of ischemic heart disease and other diseases of the circulatory system
CPT/HCPCS: 78452; 93005; 96374; 96375; A9500; J0153

== ENCOUNTER → 2021-12-23 | Outpatient (CLI) | payer MEDICARE, MEDICAID ==
[~2021-12-23] MED LIST changes: -ADENOSINE 67 MG in GIVE UN-DILUTED 0 ML IV ONE; -ADENOSINE 90 MG/30 ML INJ IV ONE
[2021-12-23 09:45] LABS: Potassium 4.2 mmol/L (3.5-5.1)
== END | disposition home or self-care (01) ==
LOC: LAB 08:48
PROVIDERS: ATTEND Internal Medicine
DX: I10 Essential (primary) hypertension (principal); E78.5 Hyperlipidemia, unspecified; Z79.899 Other long term (current) drug therapy
CPT/HCPCS: 36415; 80061; 83036; 84132

== ENCOUNTER 2022-06-18 11:08 | Inpatient (IN) | payer MEDICARE, MEDICAID ==
[~2022-06-18] VITALS: Ht 175.3 cm; Wt 84.2 kg
[2022-06-18 11:39] LABS: Basophils # (auto) 0.1 10 ^3/uL (0-0.2); Basophils % (auto) 0.6 % (0.0-2.0); Eosinophils # (auto) 0.2 10 ^3/uL (0-0.8); Hematocrit 32.9 % (41.0-53.0); Hemoglobin 11.1 g/dL (13.5-17.5); Lymphocytes % (auto) 9.6 % (10.0-50.0); Mean Corpuscular Hemoglobin 32.4 pg (28.0-32.0); Mean Corpuscular Hgb Conc. 33.8 g/dL (32.0-36.0); Mean Corpuscular Volume 96.1 fL (80.0-100.0); Monocytes # (auto) 0.7 10 ^3/uL (0-1.3); Monocytes % (auto) 6.9 % (0.0-12.0); Neutrophils # (auto) 8.7 10 ^3/uL (1.6-8.6); Neutrophils % (auto) 80.9 % (37.0-80.0); Nucleated Red Blood Cells % 0.1 %; Red Blood Cells 3.43 10^6/uL (4.5-5.90); Red Cell Distribution Width 15.7 % (11.8-14.3); White Blood Cell 10.8 10^3/uL (4.4-10.8)
[2022-06-18 11:57] LABS: Albumin 3.7 g/dL (3.4-5.0); Calcium 7.3 mg/dL (8.5-10.1); Magnesium 2.1 mg/dL (1.6-2.6); Potassium 4.7 mmol/L (3.5-5.1)
[2022-06-18 12:00] LABS: Bilirubin, Total 0.8 mg/dL (0.2-1.0); Total Protein 7.8 g/dL (6.4-8.2)
[2022-06-18 13:13] LABS: INR 1.03 (0.9-1.15); Partial Thromboplastin Time 26.6 sec (24.6-33.4)
[2022-06-18] MEDS ORDERED: MORPHINE SULFATE 4 MG/ML SYR/VIAL IV ONE (13:30)
[2022-06-18] MEDS ORDERED: ONDANSETRON HCL 4 MG/2 ML VIAL IV ONE (13:30)
[2022-06-18] MEDS ORDERED: MORPHINE SULFATE INJ 2 MG/ml SYRG IV PRN ×2 (15:30)
[2022-06-18] MEDS ORDERED: NITROGLYCERIN 0.4 MG SL TAB SL PRN (15:30)
[2022-06-18] MEDS ORDERED: ONDANSETRON HCL 4 MG/2 ML VIAL IV PRN (15:30)
[2022-06-18] MEDS ORDERED: DEXTROSE (50%) 50ML SYRG IV PRN (16:00)
[2022-06-18] MEDS: ACCU-CHEK COMFORT CURVE STRIP VI SCH ×2 (17:00→22:41)
[2022-06-18] MEDS: InsuLIN REG 1unit/0.01ml Soln (100units/ml) SC SCH ×2 (18:01→22:46)
[2022-06-18] MEDS: HYDROcodone-ACET 5/325MG TAB PO PRN (19:08)
[2022-06-18] MEDS: ACETAMINOPHEN 325 MG TAB PO PRN (19:09)
[2022-06-18 22:00] VITALS: BP 78/35
[2022-06-18] MEDS: amLODIPine BESYLATE 5 MG TAB PO SCH (22:00)
[2022-06-18] MEDS: GLIMEPIRIDE 2 MG TAB PO SCH (22:00)
[2022-06-18] MEDS: SACUBITRIL-VALSARTAN 24mg/26mg TAB PO SCH (22:00)
[2022-06-18] MEDS: METOPROLOL TARTRATE 50 MG TAB PO SCH (22:00)
[2022-06-18] MEDS ORDERED: MIDODRINE HCL 10 MG TAB PO ONE (22:15)
[2022-06-18] MEDS: SODIUM CHLOR 0.9% PF (SALINE LOCK) 10ML VIAL/SYR IV SCH (22:43)
[2022-06-18] MEDS: INSULIN LANTUS (GLARGINE) 1 /0.01ml (100units/ml) SC SCH (22:47)
[2022-06-19] MEDS: HYDROcodone-ACET 5/325MG TAB PO PRN ×3 (02:07→20:47)
[2022-06-19 05:07] VITALS: BP 122/33
[2022-06-19] MEDS: SODIUM CHLOR 0.9% PF (SALINE LOCK) 10ML VIAL/SYR IV SCH ×3 (06:42→22:05)
[2022-06-19] MEDS: ACCU-CHEK COMFORT CURVE STRIP VI SCH ×4 (06:43→22:02)
[2022-06-19] MEDS: InsuLIN REG 1unit/0.01ml Soln (100units/ml) SC SCH ×4 (06:44→22:00)
[2022-06-19 08:15] VITALS: BP 130/45
[2022-06-19 08:49] LABS: Basophils # (auto) 0 10 ^3/uL (0-0.2); Basophils % (auto) 0.3 % (0.0-2.0); Eosinophils # (auto) 0.1 10 ^3/uL (0-0.8); Eosinophils % (auto) 1.1 % (0.0-7.0); Hematocrit 28.9 % (41.0-53.0); Hemoglobin 9.9 g/dL (13.5-17.5); Lymphocytes # (auto) 1.1 10 ^3/uL (0.4-5.4); Lymphocytes % (auto) 11.1 % (10.0-50.0); Mean Corpuscular Hemoglobin 32.8 pg (28.0-32.0); Mean Corpuscular Hgb Conc. 34.1 g/dL (32.0-36.0); Mean Corpuscular Volume 96.1 fL (80.0-100.0); Monocytes # (auto) 0.9 10 ^3/uL (0-1.3); Monocytes % (auto) 8.9 % (0.0-12.0); Neutrophils # (auto) 8.1 10 ^3/uL (1.6-8.6); Neutrophils % (auto) 78.6 % (37.0-80.0); Nucleated Red Blood Cells % 0.1 %; Red Cell Distribution Width 16.4 % (11.8-14.3); White Blood Cell 10.3 10^3/uL (4.4-10.8)
[2022-06-19 09:00] LABS: Albumin 3.4 g/dL (3.4-5.0); Calcium 7.2 mg/dL (8.5-10.1)
[2022-06-19 09:04] LABS: Bilirubin, Total 0.7 mg/dL (0.2-1.0); Total Protein 7.2 g/dL (6.4-8.2)
[2022-06-19 09:15] LABS: Potassium 5.9 mmol/L (3.5-5.1)
[2022-06-19] MEDS: ATORVASTATIN 20 MG TAB PO SCH (09:17)
[2022-06-19] MEDS: PANTOPRAZOLE 40 MG/10 ML VIAL INJ IV SCH (09:18)
[2022-06-19] MEDS: MIDODRINE HCL 10 MG TAB PO SCH ×2 (09:38→22:00)
[2022-06-19] MEDS: GLIMEPIRIDE 2 MG TAB PO SCH (09:41)
[2022-06-19] MEDS: amLODIPine BESYLATE 5 MG TAB PO SCH (09:43)
[2022-06-19] MEDS: SACUBITRIL-VALSARTAN 24mg/26mg TAB PO SCH ×2 (09:44→22:00)
[2022-06-19] MEDS: METOPROLOL TARTRATE 50 MG TAB PO SCH ×2 (09:44→22:00)
[2022-06-19] MEDS ORDERED: SODIUM BICARBONATE 8.4% INJ 50ML SYRINGE IV ONE (10:00)
[2022-06-19] MEDS ORDERED: CALCIUM GLUC 1,000mg/50ml-NS 50 ML IV ONE (10:00)
[2022-06-19] MEDS ORDERED: InsuLIN REG 1unit/0.01ml Soln (100units/ml) IV ONE (10:00)
[2022-06-19] MEDS ORDERED: ALBUTEROL SULF 2.5 MG/0.5ML(0.5%) NEB SOLN NEB ONE (10:00)
[2022-06-19] MEDS ORDERED: DEXTROSE (50%) 50ML SYRG IV ONE (10:00)
[2022-06-19] MEDS ORDERED: DEXTROSE 10% 250 ML Bag IV ONE (10:45)
[2022-06-19] MEDS: HYDROmorphone HCL 2 MG/ML VL/or syr IV PRN ×2 (12:40→18:33)
[2022-06-19 13:00] VITALS: BP 125/48
[2022-06-19] MEDS: SODIUM ZIRCONIUM CYCL 10 GM PAK PO SCH ×2 (13:37→22:01)
[2022-06-19 17:00] VITALS: BP 124/57
[2022-06-19 22:00] VITALS: BP 161/65
[2022-06-19] MEDS: INSULIN LANTUS (GLARGINE) 1 /0.01ml (100units/ml) SC SCH (22:00)
[2022-06-19] MEDS: DOCUSATE SOD 100 MG CAP PO PRN (22:02)
[2022-06-19 23:22] LABS: BUN/Creatinine Ratio 8.6; Calcium 7.2 mg/dL (8.5-10.1)
[2022-06-19 23:29] LABS: Potassium 5.8 mmol/L (3.5-5.1)
[2022-06-20] VITALS (17 sets, daily range): BP systolic 99–167; BP diastolic 42–72
[2022-06-20] MEDS: HYDROcodone-ACET 5/325MG TAB PO PRN ×2 (01:22→15:34)
[2022-06-20] MEDS: HYDROmorphone HCL 2 MG/ML VL/or syr IV PRN (05:14)
[2022-06-20 05:38] LABS: Basophils # (auto) 0.1 10 ^3/uL (0-0.2); Basophils % (auto) 0.5 % (0.0-2.0); Eosinophils # (auto) 0.2 10 ^3/uL (0-0.8); Hematocrit 27.4 % (41.0-53.0); Hemoglobin 9.1 g/dL (13.5-17.5); Lymphocytes # (auto) 1.3 10 ^3/uL (0.4-5.4); Lymphocytes % (auto) 13.1 % (10.0-50.0); Mean Corpuscular Hemoglobin 32.8 pg (28.0-32.0); Mean Corpuscular Hgb Conc. 33.4 g/dL (32.0-36.0); Mean Corpuscular Volume 98.4 fL (80.0-100.0); Monocytes % (auto) 9.5 % (0.0-12.0); Neutrophils # (auto) 7.5 10 ^3/uL (1.6-8.6); Neutrophils % (auto) 74.9 % (37.0-80.0); Red Blood Cells 2.78 10^6/uL (4.5-5.90); Red Cell Distribution Width 16.6 % (11.8-14.3)
[2022-06-20 05:54] LABS: Albumin 3.1 g/dL (3.4-5.0); Potassium 5.4 mmol/L (3.5-5.1)
[2022-06-20 05:58] LABS: BUN/Creatinine Ratio 8.1; Bilirubin, Total 0.8 mg/dL (0.2-1.0); Total Protein 6.6 g/dL (6.4-8.2)
[2022-06-20] MEDS: SODIUM ZIRCONIUM CYCL 10 GM PAK PO SCH ×3 (06:00→21:28)
[2022-06-20] MEDS: InsuLIN REG 1unit/0.01ml Soln (100units/ml) SC SCH ×4 (07:00→21:33)
[2022-06-20] MEDS: SODIUM CHLOR 0.9% PF (SALINE LOCK) 10ML VIAL/SYR IV SCH ×3 (07:06→21:17)
[2022-06-20] MEDS: ACCU-CHEK COMFORT CURVE STRIP VI SCH ×4 (07:07→21:29)
[2022-06-20] MEDS: ATORVASTATIN 20 MG TAB PO SCH (08:26)
[2022-06-20] MEDS: SACUBITRIL-VALSARTAN 24mg/26mg TAB PO SCH ×2 (08:26→21:28)
[2022-06-20] MEDS: METOPROLOL TARTRATE 50 MG TAB PO SCH ×2 (08:27→21:29)
[2022-06-20] MEDS: MIDODRINE HCL 10 MG TAB PO SCH ×2 (08:27→21:29)
[2022-06-20] MEDS ORDERED: ceFAZolin 1GM/50ML 100 ML IV ONE (09:19)
[2022-06-20] MEDS ORDERED: TETRACAINE 1% INJ 2 ML VIAL IJ ONE (09:28)
[2022-06-20] MEDS: PANTOPRAZOLE 40 MG/10 ML VIAL INJ IV SCH (09:31)
[2022-06-20] MEDS ORDERED: SUCCINYLCHOLINE CHLORIDE 20 MG/ML 10ML VIAL IV ONE (09:31)
[2022-06-20] MEDS ORDERED: MORPHINE SULF PF 5 MG/10 ML VIAL ONE (09:33)
[2022-06-20] MEDS ORDERED: fentaNYL CITRATE 100 MCG/2 ML VL ONE (09:35)
[2022-06-20] MEDS ORDERED: MIDAZOLAM HCL 2MG/2ML 2ml VIAL (1mg/ml) ONE (09:35)
[2022-06-20] MEDS ORDERED: BUPIVACAINE 0.25% INJ 50ML VIAL ONE (10:38)
[2022-06-20] MEDS ORDERED: DexAMETHasone SOD PHOS 10MG/1ML VIAL INJ IV PRN (11:15)
[2022-06-20] MEDS ORDERED: NALBUPHINE HCL 10 MG/1ml INJECTION SUBCUT ONE (11:15)
[2022-06-20] MEDS ORDERED: KETOROLAC TROMETH 30 MG/ML 1ML VIAL IV PRN (11:15)
[2022-06-20] MEDS ORDERED: diphenhdrAMINE HCL 50 MG/1 ML VL IV PRN (11:15)
[2022-06-20] MEDS ORDERED: HYDROmorphone HCL 2 MG/ML VL/or syr IV PRN (11:15)
[2022-06-20] MEDS ORDERED: ONDANSETRON HCL 4 MG/2 ML VIAL IV ONE (11:15)
[2022-06-20] MEDS ORDERED: NALOXONE HCL 0.4 MG/ML VIAL IV PRN (11:15)
[2022-06-20] MEDS ORDERED: PROPOFOL 10 MG/ML 20 ML IV ONE (11:33)
[2022-06-20] MEDS: ceFAZolin 1GM/50ML 50 ML IV SCH (12:00)
[2022-06-20] MEDS: ONDANSETRON HCL 4 MG/2 ML VIAL IV PRN ×2 (14:41→19:33)
[2022-06-20] MEDS: INSULIN LANTUS (GLARGINE) 1 /0.01ml (100units/ml) SC SCH (21:34)
[2022-06-21] VITALS (19 sets, daily range): BP systolic 100–152; BP diastolic 36–76
[2022-06-21] MEDS: SODIUM ZIRCONIUM CYCL 10 GM PAK PO SCH (04:41)
[2022-06-21] MEDS: SODIUM CHLOR 0.9% PF (SALINE LOCK) 10ML VIAL/SYR IV SCH ×3 (05:10→21:44)
[2022-06-21 05:44] LABS: Basophils # (auto) 0.1 10 ^3/uL (0-0.2); Monocytes # (auto) 0.7 10 ^3/uL (0-1.3); White Blood Cell 11.3 10^3/uL (4.4-10.8)
[2022-06-21 05:48] LABS: Basophils % (auto) 0.5 % (0.0-2.0); Eosinophils # (auto) 0.3 10 ^3/uL (0-0.8); Eosinophils % (auto) 2.6 % (0.0-7.0); Hematocrit 22.9 % (41.0-53.0); Hemoglobin 7.8 g/dL (13.5-17.5); Lymphocytes % (auto) 8.5 % (10.0-50.0); Mean Corpuscular Hemoglobin 32.4 pg (28.0-32.0); Mean Corpuscular Hgb Conc. 33.9 g/dL (32.0-36.0); Mean Corpuscular Volume 95.5 fL (80.0-100.0); Monocytes % (auto) 5.9 % (0.0-12.0); Neutrophils # (auto) 9.3 10 ^3/uL (1.6-8.6); Neutrophils % (auto) 82.5 % (37.0-80.0); Nucleated Red Blood Cells % 0.1 %; Red Cell Distribution Width 16.2 % (11.8-14.3)
[2022-06-21] MEDS: ACCU-CHEK COMFORT CURVE STRIP VI SCH ×4 (06:07→21:45)
[2022-06-21 06:09] LABS: Albumin 3.2 g/dL (3.4-5.0); BUN/Creatinine Ratio 8.8; Calcium 6.8 mg/dL (8.5-10.1)
[2022-06-21 06:11] LABS: Bilirubin, Total 0.6 mg/dL (0.2-1.0); Total Protein 7.1 g/dL (6.4-8.2)
[2022-06-21 06:23] LABS: Potassium 5.8 mmol/L (3.5-5.1)
[2022-06-21] MEDS: InsuLIN REG 1unit/0.01ml Soln (100units/ml) SC SCH ×4 (06:30→21:58)
[2022-06-21] MEDS ORDERED: SODIUM CHL 0.9% 1000 ML BAG XX ONE (07:00)
[2022-06-21] MEDS: PANTOPRAZOLE 40 MG/10 ML VIAL INJ IV SCH (09:07)
[2022-06-21] MEDS: ceFAZolin 1GM/50ML 50 ML IV SCH (09:07)
[2022-06-21] MEDS: ATORVASTATIN 20 MG TAB PO SCH (09:08)
[2022-06-21] MEDS: SACUBITRIL-VALSARTAN 24mg/26mg TAB PO SCH ×2 (09:08→22:03)
[2022-06-21] MEDS: MIDODRINE HCL 10 MG TAB PO SCH (09:09)
[2022-06-21] MEDS: METOPROLOL TARTRATE 50 MG TAB PO SCH (09:09)
[2022-06-21] MEDS: HYDROcodone-ACET 5/325MG TAB PO PRN ×2 (09:10→17:06)
[2022-06-21] MEDS ORDERED: KETOROLAC TROMETH 30 MG/ML 1ML VIAL IV PRN (12:15)
[2022-06-21] MEDS ORDERED: EPOETIN ALFA-EPBX 10,000 UNIT/1ML VIAL SC ONE (21:00)
[2022-06-21] MEDS ORDERED: EPOETIN ALFA-EPBX 4,000 UNIT/ML VIAL SC ONE (21:00)
[2022-06-21] MEDS: CARVEDILOL 3.125 MG TAB PO SCH (22:03)
[2022-06-22] VITALS (7 sets, daily range): BP systolic 109–133; BP diastolic 29–68
[2022-06-22] MEDS: HYDROcodone-ACET 5/325MG TAB PO PRN ×4 (01:26→20:13)
[2022-06-22] MEDS: SODIUM CHLOR 0.9% PF (SALINE LOCK) 10ML VIAL/SYR IV SCH ×3 (05:53→22:14)
[2022-06-22 06:19] LABS: Potassium 4.3 mmol/L (3.5-5.1)
[2022-06-22 06:22] LABS: Basophils # (auto) 0 10 ^3/uL (0-0.2); Lymphocytes # (auto) 0.8 10 ^3/uL (0.4-5.4); Lymphocytes % (auto) 10.6 % (10.0-50.0); Mean Corpuscular Volume 95.8 fL (80.0-100.0); Red Cell Distribution Width 15.4 % (11.8-14.3); White Blood Cell 7.6 10^3/uL (4.4-10.8)
[2022-06-22 06:27] LABS: Basophils % (auto) 0.3 % (0.0-2.0); Eosinophils # (auto) 0.2 10 ^3/uL (0-0.8); Eosinophils % (auto) 3.1 % (0.0-7.0); Hematocrit 18.9 % (41.0-53.0); Mean Corpuscular Hemoglobin 33.7 pg (28.0-32.0); Mean Corpuscular Hgb Conc. 35.1 g/dL (32.0-36.0); Monocytes # (auto) 0.7 10 ^3/uL (0-1.3); Monocytes % (auto) 8.8 % (0.0-12.0); Neutrophils # (auto) 5.8 10 ^3/uL (1.6-8.6); Neutrophils % (auto) 77.2 % (37.0-80.0); Red Blood Cells 1.97 10^6/uL (4.5-5.90)
[2022-06-22 06:28] LABS: Albumin 2.4 g/dL (3.4-5.0); BUN/Creatinine Ratio 7.6 (10.0-20.0); Bilirubin, Total 0.6 mg/dL (0.2-1.0); Calcium 7.1 mg/dL (8.5-10.1); Total Protein 6.5 g/dL (6.4-8.2)
[2022-06-22 06:30] LABS: Hemoglobin 6.6 g/dL (13.5-17.5)
[2022-06-22] MEDS: ACCU-CHEK COMFORT CURVE STRIP VI SCH ×4 (06:32→22:15)
[2022-06-22] MEDS: InsuLIN REG 1unit/0.01ml Soln (100units/ml) SC SCH ×4 (06:32→22:00)
[2022-06-22] MEDS ORDERED: SODIUM CHLORIDE LOCK 10 ML ONE (09:39)
[2022-06-22] MEDS ORDERED: NEOSTIGMINE 1 MG/ML INJ (10mg/10ML VIAL) ONE (09:39)
[2022-06-22] MEDS ORDERED: HYDROmorphone HCL 2 MG/ML VL/or syr ONE (09:39)
[2022-06-22] MEDS ORDERED: ONDANSETRON HCL 4 MG/2 ML VIAL ONE (09:39)
[2022-06-22] MEDS ORDERED: fentaNYL CITRATE 100 MCG/2 ML VL ONE (09:39)
[2022-06-22] MEDS ORDERED: MIDAZOLAM HCL 2MG/2ML 2ml VIAL (1mg/ml) ONE (09:39)
[2022-06-22] MEDS ORDERED: LIDOCAINE HCL 100 MG/5ML (2%) SYRG INJ IV ONE (09:39)
[2022-06-22] MEDS ORDERED: DexAMETHasone SOD PHOS 10MG/1ML VIAL INJ ONE (09:39)
[2022-06-22] MEDS ORDERED: GLYCOPYRROLATE 0.2 MG/ML 1ML VIAL ONE (09:39)
[2022-06-22] MEDS ORDERED: ETOMIDATE (2MG/ML) 20ML VIAL IV ONE (09:39)
[2022-06-22] MEDS: CARVEDILOL 3.125 MG TAB PO SCH ×3 (10:00→22:15)
[2022-06-22] MEDS: SACUBITRIL-VALSARTAN 24mg/26mg TAB PO SCH ×2 (10:00→22:15)
[2022-06-22] MEDS: ceFAZolin 1GM/50ML 50 ML IV SCH ×2 (10:15→12:00)
[2022-06-22] MEDS: PANTOPRAZOLE 40 MG/10 ML VIAL INJ IV SCH (10:15)
[2022-06-22] MEDS: ATORVASTATIN 20 MG TAB PO SCH (10:17)
[2022-06-22 10:30] LABS: Hemoglobin 7.8 g/dL (13.5-17.5)
[2022-06-22] MEDS ORDERED: MORPHINE SULFATE INJ 2 MG/ml SYRG IV PRN (10:30)
[2022-06-22] MEDS ORDERED: METOCLOPRAMIDE HCL 5MG/ml INJ 2ml VIAL IV PRN (10:30)
[2022-06-22] MEDS ORDERED: ACCU-CHEK COMFORT CURVE STRIP VI ONE (10:30)
[2022-06-22] MEDS ORDERED: HYDROmorphone HCL 2 MG/ML VL/or syr IV PRN ×4 (10:30→14:15)
[2022-06-22 10:31] LABS: Hematocrit 22.7 % (41.0-53.0)
[2022-06-22] MEDS ORDERED: BUPIVACAINE HCL 50 ML ONE (11:07)
[2022-06-22] MEDS ORDERED: ONDANSETRON HCL 4 MG/2 ML VIAL IV PRN (14:15)
[2022-06-22] MEDS: ONDANSETRON HCL 4 MG/2 ML VIAL IV PRN (16:58)
[2022-06-22] MEDS: HYDROmorphone HCL 2 MG/ML VL/or syr IV PRN ×2 (17:00→23:06)
[2022-06-23] MEDS: HYDROcodone-ACET 5/325MG TAB PO PRN ×4 (01:46→22:29)
[2022-06-23] MEDS: HYDROmorphone HCL 2 MG/ML VL/or syr IV PRN ×2 (04:24→15:55)
[2022-06-23 05:00] VITALS: BP 141/42
[2022-06-23] MEDS: SODIUM CHLOR 0.9% PF (SALINE LOCK) 10ML VIAL/SYR IV SCH ×3 (05:47→22:13)
[2022-06-23 06:35] LABS: Basophils # (auto) 0 10 ^3/uL (0-0.2); Eosinophils # (auto) 0.5 10 ^3/uL (0-0.8); Lymphocytes # (auto) 0.6 10 ^3/uL (0.4-5.4)
[2022-06-23 06:38] LABS: Basophils % (auto) 0.4 % (0.0-2.0); Eosinophils % (auto) 5.7 % (0.0-7.0); Hematocrit 22.9 % (41.0-53.0); Hemoglobin 7.9 g/dL (13.5-17.5); Mean Corpuscular Hemoglobin 32.5 pg (28.0-32.0); Mean Corpuscular Hgb Conc. 34.4 g/dL (32.0-36.0); Mean Corpuscular Volume 94.5 fL (80.0-100.0); Monocytes # (auto) 0.6 10 ^3/uL (0-1.3); Neutrophils # (auto) 7.1 10 ^3/uL (1.6-8.6); Neutrophils % (auto) 79.9 % (37.0-80.0); Red Blood Cells 2.42 10^6/uL (4.5-5.90); Red Cell Distribution Width 15.5 % (11.8-14.3); White Blood Cell 8.9 10^3/uL (4.4-10.8)
[2022-06-23] MEDS: InsuLIN REG 1unit/0.01ml Soln (100units/ml) SC SCH ×5 (06:38→22:00)
[2022-06-23] MEDS: ACCU-CHEK COMFORT CURVE STRIP VI SCH ×4 (06:38→22:13)
[2022-06-23 06:57] LABS: Albumin 2.6 g/dL (3.4-5.0); Calcium 6.9 mg/dL (8.5-10.1); Potassium 4.8 mmol/L (3.5-5.1)
[2022-06-23 07:03] LABS: BUN/Creatinine Ratio 8.5 (10.0-20.0); Bilirubin, Total 0.9 mg/dL (0.2-1.0); Total Protein 6.4 g/dL (6.4-8.2)
[2022-06-23 08:50] VITALS: BP 132/51
[2022-06-23] MEDS: SACUBITRIL-VALSARTAN 24mg/26mg TAB PO SCH ×2 (10:00→22:12)
[2022-06-23] MEDS: CARVEDILOL 3.125 MG TAB PO SCH ×2 (10:00→22:13)
[2022-06-23] MEDS ORDERED: DEXTROSE (50%) 50ML SYRG IV PRN (10:45)
[2022-06-23] MEDS ORDERED: SODIUM CHL 0.9% 1000 ML BAG XX ONE (11:30)
[2022-06-23 12:21] VITALS: BP 102/39
[2022-06-23] MEDS: ATORVASTATIN 20 MG TAB PO SCH (13:38)
[2022-06-23] MEDS: ceFAZolin 1GM/50ML 50 ML IV SCH (15:51)
[2022-06-23 16:59] VITALS: BP 132/45
[2022-06-23 22:00] VITALS: BP 130/35
[2022-06-24] VITALS (7 sets, daily range): BP systolic 98–128; BP diastolic 44–68
[2022-06-24 05:27] LABS: Basophils # (auto) 0 10 ^3/uL (0-0.2); Basophils % (auto) 0.4 % (0.0-2.0); Eosinophils # (auto) 0.4 10 ^3/uL (0-0.8); Eosinophils % (auto) 5.5 % (0.0-7.0); Hematocrit 20.8 % (41.0-53.0); Hemoglobin 7.3 g/dL (13.5-17.5); Lymphocytes # (auto) 0.7 10 ^3/uL (0.4-5.4); Lymphocytes % (auto) 11.1 % (10.0-50.0); Mean Corpuscular Hemoglobin 32.5 pg (28.0-32.0); Mean Corpuscular Hgb Conc. 35.2 g/dL (32.0-36.0); Mean Corpuscular Volume 92.3 fL (80.0-100.0); Monocytes # (auto) 0.6 10 ^3/uL (0-1.3); Monocytes % (auto) 9.2 % (0.0-12.0); Neutrophils # (auto) 4.9 10 ^3/uL (1.6-8.6); Neutrophils % (auto) 73.8 % (37.0-80.0); Red Blood Cells 2.25 10^6/uL (4.5-5.90); Red Cell Distribution Width 15.3 % (11.8-14.3); White Blood Cell 6.7 10^3/uL (4.4-10.8)
[2022-06-24 05:42] LABS: Albumin 2.3 g/dL (3.4-5.0); Calcium 7.2 mg/dL (8.5-10.1); Potassium 4.4 mmol/L (3.5-5.1)
[2022-06-24 05:47] LABS: BUN/Creatinine Ratio 8.2 (10.0-20.0); Bilirubin, Total 0.8 mg/dL (0.2-1.0); Total Protein 5.8 g/dL (6.4-8.2)
[2022-06-24] MEDS: SODIUM CHLOR 0.9% PF (SALINE LOCK) 10ML VIAL/SYR IV SCH ×3 (06:00→21:30)
[2022-06-24] MEDS: ACCU-CHEK COMFORT CURVE STRIP VI SCH ×4 (06:35→21:32)
[2022-06-24] MEDS: InsuLIN REG 1unit/0.01ml Soln (100units/ml) SC SCH ×5 (06:38→22:00)
[2022-06-24] MEDS: HYDROcodone-ACET 5/325MG TAB PO PRN ×3 (06:39→18:57)
[2022-06-24] MEDS: ceFAZolin 1GM/50ML 50 ML IV SCH (09:16)
[2022-06-24] MEDS: SACUBITRIL-VALSARTAN 24mg/26mg TAB PO SCH ×2 (09:26→21:32)
[2022-06-24] MEDS: PANTOPRAZOLE 40 MG TAB PO SCH (09:28)
[2022-06-24] MEDS: CARVEDILOL 3.125 MG TAB PO SCH ×2 (09:28→21:32)
[2022-06-24] MEDS: DOCUSATE SOD 100 MG CAP PO PRN (11:09)
[2022-06-24] MEDS: ATORVASTATIN 20 MG TAB PO SCH (21:32)
[2022-06-25] MEDS: HYDROcodone-ACET 5/325MG TAB PO PRN ×4 (03:33→21:32)
[2022-06-25 05:00] VITALS: BP 133/44
[2022-06-25] MEDS: SODIUM CHLOR 0.9% PF (SALINE LOCK) 10ML VIAL/SYR IV SCH ×3 (06:11→21:34)
[2022-06-25] MEDS: InsuLIN REG 1unit/0.01ml Soln (100units/ml) SC SCH ×5 (07:00→21:50)
[2022-06-25] MEDS: ACCU-CHEK COMFORT CURVE STRIP VI SCH ×4 (07:22→21:41)
[2022-06-25 08:00] VITALS: BP 138/57
[2022-06-25 09:00] VITALS: BP 138/57
[2022-06-25] MEDS: DOCUSATE SOD 100 MG CAP PO PRN (09:01)
[2022-06-25] MEDS: SACUBITRIL-VALSARTAN 24mg/26mg TAB PO SCH ×2 (10:00→21:41)
[2022-06-25] MEDS: CARVEDILOL 3.125 MG TAB PO SCH ×2 (10:00→21:40)
[2022-06-25] MEDS ORDERED: NYSTATIN (MOUTH-THROAT) 500,000 UNITS/5 ML SUSP MT ONE (10:15)
[2022-06-25] MEDS ORDERED: DOCUSATE SOD 100 MG CAP PO ONE (11:15)
[2022-06-25] MEDS ORDERED: LACTULOSE 20Gm/30ML SOLN PO ONE (11:15)
[2022-06-25] MEDS: NYSTATIN (MOUTH-THROAT) 500,000 UNITS/5 ML SUSP MT SCH ×3 (12:00→21:34)
[2022-06-25 13:00] VITALS: BP 118/46
[2022-06-25] MEDS: PANTOPRAZOLE 40 MG TAB PO SCH (14:13)
[2022-06-25] MEDS ORDERED: ACET-1156 PO ×2 (15:53→15:54)
[2022-06-25] MEDS ORDERED: PANT40TA2 PO (15:56)
[2022-06-25] MEDS ORDERED: NITR0.4S29 SL (15:58)
[2022-06-25] MEDS ORDERED: DOCU100T15 PO (15:59)
[2022-06-25] MEDS ORDERED: INSREG3 SC (16:04)
[2022-06-25] MEDS: ACETAMINOPHEN 325 MG TAB PO PRN (16:35)
[2022-06-25 16:43] VITALS: BP 114/53
[2022-06-25] MEDS ORDERED: EPOETIN ALFA-EPBX 4,000 UNIT/ML VIAL SC ONE (21:00)
[2022-06-25] MEDS: ATORVASTATIN 20 MG TAB PO SCH (21:31)
[2022-06-25 22:00] VITALS: BP 91/50
[2022-06-26] MEDS: HYDROcodone-ACET 5/325MG TAB PO PRN ×5 (02:03→20:59)
[2022-06-26 05:00] VITALS: BP 111/60
[2022-06-26] MEDS: SODIUM CHLOR 0.9% PF (SALINE LOCK) 10ML VIAL/SYR IV SCH ×3 (06:16→21:33)
[2022-06-26] MEDS: NYSTATIN (MOUTH-THROAT) 500,000 UNITS/5 ML SUSP MT SCH ×4 (06:16→21:32)
[2022-06-26] MEDS: InsuLIN REG 1unit/0.01ml Soln (100units/ml) SC SCH ×5 (06:42→21:52)
[2022-06-26] MEDS: ACCU-CHEK COMFORT CURVE STRIP VI SCH ×4 (06:42→21:34)
[2022-06-26 08:15] VITALS: BP 120/34
[2022-06-26 08:41] VITALS: BP 120/34
[2022-06-26] MEDS: SACUBITRIL-VALSARTAN 24mg/26mg TAB PO SCH ×2 (10:26→21:32)
[2022-06-26] MEDS: PANTOPRAZOLE 40 MG TAB PO SCH (10:26)
[2022-06-26] MEDS: CARVEDILOL 3.125 MG TAB PO SCH ×2 (10:27→21:33)
[2022-06-26] MEDS: DOCUSATE SOD 100 MG CAP PO PRN (11:45)
[2022-06-26 12:16] VITALS: BP 133/47
[2022-06-26 16:35] VITALS: BP 132/42
[2022-06-26] MEDS: ATORVASTATIN 20 MG TAB PO SCH (21:32)
[2022-06-26 22:00] VITALS: BP 116/36
[2022-06-27] VITALS (7 sets, daily range): BP systolic 115–139; BP diastolic 30–64
[2022-06-27] MEDS: NYSTATIN (MOUTH-THROAT) 500,000 UNITS/5 ML SUSP MT SCH ×4 (06:08→22:10)
[2022-06-27] MEDS: ACCU-CHEK COMFORT CURVE STRIP VI SCH ×4 (06:08→22:25)
[2022-06-27] MEDS: SODIUM CHLOR 0.9% PF (SALINE LOCK) 10ML VIAL/SYR IV SCH ×3 (06:08→22:15)
[2022-06-27] MEDS: HYDROcodone-ACET 5/325MG TAB PO PRN ×3 (06:18→17:05)
[2022-06-27] MEDS: InsuLIN REG 1unit/0.01ml Soln (100units/ml) SC SCH ×6 (06:18→22:25)
[2022-06-27] MEDS: SACUBITRIL-VALSARTAN 24mg/26mg TAB PO SCH ×2 (10:31→22:11)
[2022-06-27] MEDS: PANTOPRAZOLE 40 MG TAB PO SCH (10:32)
[2022-06-27] MEDS: CARVEDILOL 3.125 MG TAB PO SCH ×2 (10:33→22:12)
[2022-06-27 10:37] LABS: Eosinophils # (auto) 0.8 10 ^3/uL (0-0.8); Hemoglobin 8.2 g/dL (13.5-17.5); Neutrophils # (auto) 6.8 10 ^3/uL (1.6-8.6); White Blood Cell 9.1 10^3/uL (4.4-10.8)
[2022-06-27 10:39] LABS: Basophils # (auto) 0.1 10 ^3/uL (0-0.2); Basophils % (auto) 0.6 % (0.0-2.0); Eosinophils % (auto) 8.3 % (0.0-7.0); Hematocrit 24.6 % (41.0-53.0); Lymphocytes % (auto) 10.8 % (10.0-50.0); Mean Corpuscular Hemoglobin 31.5 pg (28.0-32.0); Mean Corpuscular Hgb Conc. 33.4 g/dL (32.0-36.0); Mean Corpuscular Volume 94.5 fL (80.0-100.0); Monocytes # (auto) 0.6 10 ^3/uL (0-1.3); Neutrophils % (auto) 74.3 % (37.0-80.0); Red Cell Distribution Width 14.9 % (11.8-14.3)
[2022-06-27] MEDS: ATORVASTATIN 20 MG TAB PO SCH (22:12)
[2022-06-27] MEDS: HYDROmorphone HCL 2 MG/ML VL/or syr IV PRN (22:36)
[2022-06-28] VITALS (7 sets, daily range): BP systolic 108–136; BP diastolic 24–63
[2022-06-28] MEDS: NYSTATIN (MOUTH-THROAT) 500,000 UNITS/5 ML SUSP MT SCH ×4 (06:17→22:56)
[2022-06-28] MEDS: SODIUM CHLOR 0.9% PF (SALINE LOCK) 10ML VIAL/SYR IV SCH ×3 (06:20→22:00)
[2022-06-28] MEDS: InsuLIN REG 1unit/0.01ml Soln (100units/ml) SC SCH ×5 (06:21→22:00)
[2022-06-28] MEDS: ACCU-CHEK COMFORT CURVE STRIP VI SCH ×4 (06:21→22:00)
[2022-06-28] MEDS: HYDROmorphone HCL 2 MG/ML VL/or syr IV PRN ×2 (06:30→11:33)
[2022-06-28] MEDS: SACUBITRIL-VALSARTAN 24mg/26mg TAB PO SCH ×2 (10:00→22:57)
[2022-06-28] MEDS: CARVEDILOL 3.125 MG TAB PO SCH ×2 (10:00→22:58)
[2022-06-28] MEDS ORDERED: NYS5LQ MT (10:36)
[2022-06-28] MEDS ORDERED: HYDR1TAB97 PO (10:36)
[2022-06-28] MEDS: PANTOPRAZOLE 40 MG TAB PO SCH (11:54)
[2022-06-28] MEDS ORDERED: HYDROcodone-ACET 5/325MG TAB PO ONE (16:00)
[2022-06-28] MEDS: ACETAMINOPHEN 325 MG TAB PO PRN ×2 (18:04→23:12)
[2022-06-28] MEDS ORDERED: EPOETIN ALFA-EPBX 4,000 UNIT/ML VIAL SC ONE (21:00)
[2022-06-28] MEDS: ATORVASTATIN 20 MG TAB PO SCH (22:57)
[2022-06-29 05:00] VITALS: BP 123/67
[2022-06-29] MEDS: ACETAMINOPHEN 325 MG TAB PO PRN (06:13)
[2022-06-29] MEDS: InsuLIN REG 1unit/0.01ml Soln (100units/ml) SC SCH ×2 (06:18→06:21)
[2022-06-29] MEDS: SODIUM CHLOR 0.9% PF (SALINE LOCK) 10ML VIAL/SYR IV SCH (06:19)
[2022-06-29] MEDS: ACCU-CHEK COMFORT CURVE STRIP VI SCH (06:21)
[2022-06-29] MEDS: NYSTATIN (MOUTH-THROAT) 500,000 UNITS/5 ML SUSP MT SCH (06:21)
[2022-06-29 08:15] VITALS: BP 139/38
== END 2022-06-29 10:23 | disposition home or self-care (01) | DRG 480 ==
LOC: ER 11:08 → EDBD 11:08 → OVERFLOW 15:30 → EDUNIT# 15:30 → EAST 18:35 → TELE-EAST 06-19 10:36 → EAST 06-25 17:59
PROVIDERS: ADMIT Nurse Practitioner Family; ATTEND Internal Medicine
PROC: 0QS634Z Reposition Right Upper Femur with Internal Fixation Device, Percutaneous Approach (ICD-10-PCS; 2022-06-20)
PROC: 5A1D70Z Performance of Urinary Filtration, Intermittent, Less than 6 Hours Per Day (ICD-10-PCS; 2022-06-21)
PROC: 0PSC06Z Reposition Right Humeral Head with Intramedullary Internal Fixation Device, Open Approach (ICD-10-PCS; 2022-06-22)
PROC: 30233N1 Transfusion of Nonautologous Red Blood Cells into Peripheral Vein, Percutaneous Approach (ICD-10-PCS; principal; 2022-06-22 11:42)
PROC: 5A1D70Z Performance of Urinary Filtration, Intermittent, Less than 6 Hours Per Day (ICD-10-PCS; 2022-06-23)
PROC: 5A1D70Z Performance of Urinary Filtration, Intermittent, Less than 6 Hours Per Day (ICD-10-PCS; 2022-06-25)
PROC: 5A1D70Z Performance of Urinary Filtration, Intermittent, Less than 6 Hours Per Day (ICD-10-PCS; 2022-06-28)
DX: S42.351A Displaced comminuted fracture of shaft of humerus, right arm, initial encounter for closed fracture (principal); I50.43 Acute on chronic combined systolic (congestive) and diastolic (congestive) heart failure; S72.144A Nondisplaced intertrochanteric fracture of right femur, initial encounter for closed fracture; N18.6 End stage renal disease; I13.2 Hypertensive heart and chronic kidney disease with heart failure and with stage 5 chronic kidney disease, or end stage renal disease; B37.0 Candidal stomatitis; D63.1 Anemia in chronic kidney disease; Z20.822 Contact with and (suspected) exposure to COVID-19; E11.22 Type 2 diabetes mellitus with diabetic chronic kidney disease; E78.5 Hyperlipidemia, unspecified; I25.10 Atherosclerotic heart disease of native coronary artery without angina pectoris; N25.0 Renal osteodystrophy; W18.30XA Fall on same level, unspecified, initial encounter; D72.829 Elevated white blood cell count, unspecified; E87.5 Hyperkalemia; E87.6 Hypokalemia; E11.51 Type 2 diabetes mellitus with diabetic peripheral angiopathy without gangrene; Z95.1 Presence of aortocoronary bypass graft; Z83.3 Family history of diabetes mellitus; Z82.49 Family history of ischemic heart disease and other diseases of the circulatory system; Y93.89 Activity, other specified; Y92.89 Other specified places as the place of occurrence of the external cause; Y99.8 Other external cause status; Z86.73 Personal history of transient ischemic attack (TIA), and cerebral infarction without residual deficits; Z83.42 Family history of familial hypercholesterolemia; Z80.9 Family history of malignant neoplasm, unspecified
CPT/HCPCS: 36415; 70450; 71045; 72125; 73030; 73060; 73200; 73502; 76000; 80048; 80053; 82306; 82962; 83735; 83970; 84100; 84132; 84484; 85014; 85018; 85025; 85610; 85730; 86850; 86900; 86901; 86920; 87081; 87426; 90935; 93005; 93306; 93925; 94640; 96372; 97110; 97116; 97163; 97530; A4565; C9113; G0378; J0330; J0690; J1100; J1642; J1815; J1885; J2250; J2405; J2704; J3490

== ENCOUNTER → 2022-10-13 | Outpatient (CLI) | payer MEDICARE, MEDICAID ==
[~2022-10-13] MED LIST changes: +ACET-1881 PO; -AMLO-489 PO; -BUME1TAB3 PO; -CLON0.1T PO; -CLOP75TA28 PO; +DOCU100T15 PO; -GLIM4TAB42 PO; +HYDR1TAB97 PO; +INSREG3 SC; -LEVEMIR SC; +NITR0.4S29 SL; +NYS5LQ MT; +PANT40TA2 PO
== END | disposition home or self-care (01) ==
LOC: Rad HDHVI 14:53
PROVIDERS: ATTEND Internal Medicine Cardiovascular Disease
DX: I73.9 Peripheral vascular disease, unspecified (principal)
CPT/HCPCS: 93925

== ENCOUNTER → 2022-12-24 | Outpatient (CLI) | payer MEDICARE, MEDICAID | END | disposition home or self-care (01) | LOC: LAB 16:40 | PROVIDERS: ATTEND Student in an Organized Health Care Education/Training Program | DX: E11.621 Type 2 diabetes mellitus with foot ulcer (principal) | CPT/HCPCS: 87075; 87077; 87186; 87205 ==

== ENCOUNTER → 2023-02-09 | Outpatient (CLI) | payer MEDICARE, MEDICAID ==
[~2023-02-09] MED LIST changes: +ALLO100T PO; +ALPR0.5T PO; +AMIO200T33 PO; +AMLO1TAB23 PO; +B-CO-5 OR; +CHOL20007 PO; +FENO160T PO; +GABA-1250 PO; +LORA-622 PO; +METO25TA93 PO; +MONT-8 PO; +PAR20T PO; +SEVE800T8 PO; +SIMV20TA20 PO; +SULF800T23 PO; +TICA90TA PO; +TRAZ-228 PO
[2023-02-09 09:32] LABS: Basophils # (auto) 0.1 10 ^3/uL (0-0.2); Basophils % (auto) 0.8 % (0.0-2.0); Eosinophils # (auto) 0.2 10 ^3/uL (0-0.8); Eosinophils % (auto) 3.4 % (0.0-7.0); Hemoglobin 13.9 g/dL (13.5-17.5); Lymphocytes # (auto) 1.2 10 ^3/uL (0.4-5.4); Lymphocytes % (auto) 16.4 % (10.0-50.0); Mean Corpuscular Hemoglobin 29.8 pg (28.0-32.0); Mean Corpuscular Hgb Conc. 33.1 g/dL (32.0-36.0); Monocytes # (auto) 0.4 10 ^3/uL (0-1.3); Neutrophils # (auto) 5.5 10 ^3/uL (1.6-8.6); Neutrophils % (auto) 74.4 % (37.0-80.0); Red Blood Cells 4.67 10^6/uL (4.5-5.90); Red Cell Distribution Width 14.6 % (11.8-14.3); White Blood Cell 7.3 10^3/uL (4.4-10.8)
[2023-02-09 10:13] LABS: Alanine Aminotransferase 22 U/L (7-40); Albumin 4.8 g/dL (3.2-4.8); Alkaline Phosphatase 177 U/L (46-116); Anion Gap 8 (5-15); Aspartate Aminotransferase 20 U/L (13-40); Blood Urea Nitrogen 24 mg/dL (9-23); Calcium 9.1 mg/dL (8.5-10.1); Carbon Dioxide 32 mmol/L (20-30); Chloride 99 mmol/L (98-107); Glucose 124 mg/dL (74-106); LDL Cholesterol 159 mg/dL (< 100); Potassium 4.8 mmol/L (3.5-5.1); Sodium 139 mmol/L (136-145); Triglycerides 225 mg/dL (< 150)
[2023-02-09 10:14] LABS: Bilirubin, Total 0.4 mg/dL (0.2-1.0); Cholesterol 229 mg/dL (< 200); HDL Cholesterol 40 mg/dL (40-59); Total Protein 8.4 g/dL (5.7-8.2)
[2023-02-09 10:40] LABS: Prostate Specific Antigen 1.56 ng/mL (0.0-4.0)
[2023-02-09 10:44] LABS: Free T4 (Free Thyroxine) 1.16 ng/dL (0.89-1.76)
[2023-02-09 11:23] LABS: Uric Acid 2.7 mg/dL (3.7-9.2)
[2023-02-09 11:44] LABS: Erythrocyte Sedimentation Rate 61 mm/hr (0-20)
[2023-02-10 09:55] LABS: Urine Bacteria MANY /hpf (None Seen); Urine Blood Negative /uL (Negative); Urine Clarity Clear (Clear); Urine Color Yellow (Yellow); Urine Mucus FEW (None Seen); Urine Protein, UAD 3+ (Negative); Urine Specific Gravity 1.015 (1.001-1.035); Urine Sperm PRESENT /hpf (None Seen); Urine Urobilinogen Normal (Negative); Urine WBC 2 /hpf (0 - 3); Urine pH 7.5 (5.0-8.0)
== END | disposition home or self-care (01) ==
LOC: LAB 09:11
PROVIDERS: ATTEND Internal Medicine
DX: I10 Essential (primary) hypertension (principal)
CPT/HCPCS: 36415; 80053; 80061; 81001; 83036; 84153; 84439; 84443; 84550; 85025; 85652

== ENCOUNTER → 2023-03-10 | Outpatient (CLI) | payer MEDICARE, MEDICAID | END | disposition home or self-care (01) | LOC: LAB 12:25 | PROVIDERS: ATTEND Podiatrist | DX: E11.621 Type 2 diabetes mellitus with foot ulcer (principal) | CPT/HCPCS: 87205 ==

== ENCOUNTER → 2023-03-23 | Outpatient (CLI) | payer MEDICARE, MEDICAID ==
[~2023-03-23] MED LIST changes: +MEROPENEM 1GM IVPB 100 ML IV ONE
[2023-03-23 10:59] VITALS: BP 139/72; PULSE 89; RESP 16; O2SAT 98
[2023-03-23] MEDS: MEROPENEM 1 GM IV ONE ×2 (10:59→13:12)
[2023-03-23 15:25] VITALS: BP 129/69; PULSE 85; RESP 16; O2SAT 98
== END | disposition home or self-care (01) ==
LOC: Rad HDHVI 09:55
PROVIDERS: ATTEND Internal Medicine Cardiovascular Disease
DX: E11.621 Type 2 diabetes mellitus with foot ulcer (principal); L89.620 Pressure ulcer of left heel, unstageable; L89.610 Pressure ulcer of right heel, unstageable; I10 Essential (primary) hypertension
CPT/HCPCS: 93925; 96365; 96366; G0463; J2185

== ENCOUNTER → 2023-03-24 | Outpatient (CLI) | payer MEDICARE, MEDICAID ==
[2023-03-24 09:50] VITALS: BP 135/61; PULSE 83; RESP 18; O2SAT 98
[2023-03-24 14:16] VITALS: BP 104/47; PULSE 68; RESP 18; O2SAT 98
== END | disposition home or self-care (01) ==
LOC: CHF HDHVI 09:45
PROVIDERS: ATTEND Internal Medicine Cardiovascular Disease
DX: E11.621 Type 2 diabetes mellitus with foot ulcer (principal); L89.610 Pressure ulcer of right heel, unstageable; L89.620 Pressure ulcer of left heel, unstageable; I10 Essential (primary) hypertension
CPT/HCPCS: 96365; 96366; G0463; J2185

== ENCOUNTER → 2023-03-25 | Outpatient (CLI) | payer MEDICARE, MEDICAID ==
[~2023-03-25] MED LIST changes: +MEROPENEM 1 GM IV ONE
[2023-03-25 09:05] VITALS: BP 124/62; PULSE 76; RESP 16; O2SAT 100
[2023-03-25 13:16] VITALS: BP 99/49; PULSE 77; RESP 16; O2SAT 100
== END | disposition home or self-care (01) ==
LOC: CHF HDHVI 08:46
PROVIDERS: ATTEND Internal Medicine Cardiovascular Disease
DX: E11.621 Type 2 diabetes mellitus with foot ulcer (principal); L89.629 Pressure ulcer of left heel, unspecified stage; L89.619 Pressure ulcer of right heel, unspecified stage; M86.9 Osteomyelitis, unspecified; I10 Essential (primary) hypertension
CPT/HCPCS: 96365; 96366; G0463; J2185

== ENCOUNTER → 2023-03-29 | Outpatient (CLI) | payer MEDICARE, MEDICAID ==
[~2023-03-29] VITALS: Ht 30.5 cm; Wt 0.5 kg
[2023-03-29 10:40] VITALS: BP 162/70; PULSE 75; RESP 16; O2SAT 99
[2023-03-29 15:04] VITALS: BP 133/72; PULSE 70; RESP 16; O2SAT 99
== END | disposition home or self-care (01) ==
LOC: CHF HDHVI 10:35
PROVIDERS: ATTEND Internal Medicine Cardiovascular Disease
DX: E11.69 Type 2 diabetes mellitus with other specified complication (principal); M86.8X7 Other osteomyelitis, ankle and foot; E11.621 Type 2 diabetes mellitus with foot ulcer; L89.629 Pressure ulcer of left heel, unspecified stage; L89.619 Pressure ulcer of right heel, unspecified stage; I10 Essential (primary) hypertension
CPT/HCPCS: 96365; 96366; G0463; J2185

== ENCOUNTER → 2023-03-31 | Outpatient (CLI) | payer MEDICARE, MEDICAID ==
[~2023-03-31] MED LIST changes: -MEROPENEM 1 GM IV ONE
[2023-03-31 09:56] VITALS: BP 138/64; PULSE 84; RESP 16; O2SAT 100
[2023-03-31 14:16] VITALS: BP 136/63; PULSE 73; RESP 16; O2SAT 100
== END | disposition home or self-care (01) ==
LOC: CHF HDHVI 09:48
PROVIDERS: ATTEND Internal Medicine Cardiovascular Disease
DX: E11.621 Type 2 diabetes mellitus with foot ulcer (principal); L89.610 Pressure ulcer of right heel, unstageable; L89.620 Pressure ulcer of left heel, unstageable; E11.69 Type 2 diabetes mellitus with other specified complication; M86.8X7 Other osteomyelitis, ankle and foot; I10 Essential (primary) hypertension
CPT/HCPCS: 96365; 96366; G0463; J1642; J2185

== ENCOUNTER → 2023-04-05 | Outpatient (CLI) | payer MEDICARE, MEDICAID ==
[~2023-04-05] MED LIST changes: +MEROPENEM 1 GM IV ONE
[2023-04-05 10:20] VITALS: BP 101/58; PULSE 69; RESP 18; O2SAT 100
[2023-04-05 14:35] VITALS: BP 121/60; PULSE 69; RESP 18; O2SAT 100
== END | disposition home or self-care (01) ==
LOC: CHF HDHVI 10:13
PROVIDERS: ATTEND Internal Medicine Cardiovascular Disease
DX: E11.69 Type 2 diabetes mellitus with other specified complication (principal); M86.671 Other chronic osteomyelitis, right ankle and foot; E11.621 Type 2 diabetes mellitus with foot ulcer; L89.610 Pressure ulcer of right heel, unstageable; L89.620 Pressure ulcer of left heel, unstageable; I10 Essential (primary) hypertension
CPT/HCPCS: 96365; 96366; G0463; J1642; J2185

== ENCOUNTER → 2023-04-06 | Outpatient (CLI) | payer MEDICARE, MEDICAID ==
[~2023-04-06] MED LIST changes: +BACITRACIN TOP OINT 1 UD PKG TOP ONE
[2023-04-06 10:10] VITALS: BP 131/62; PULSE 75; RESP 16; O2SAT 99
[2023-04-06 14:35] VITALS: BP 138/60; PULSE 72; RESP 16; O2SAT 99
== END | disposition home or self-care (01) ==
LOC: CHF HDHVI 10:09
PROVIDERS: ATTEND Internal Medicine Cardiovascular Disease
DX: E11.69 Type 2 diabetes mellitus with other specified complication (principal); M86.171 Other acute osteomyelitis, right ankle and foot; E11.621 Type 2 diabetes mellitus with foot ulcer; L89.610 Pressure ulcer of right heel, unstageable; L89.620 Pressure ulcer of left heel, unstageable; I10 Essential (primary) hypertension
CPT/HCPCS: 96365; 96366; G0463; J2185

== ENCOUNTER → 2023-04-07 | Outpatient (CLI) | payer MEDICARE, MEDICAID ==
[~2023-04-07] MED LIST changes: -BACITRACIN TOP OINT 1 UD PKG TOP ONE
[2023-04-07 09:55] VITALS: BP 125/58; PULSE 83; RESP 16; O2SAT 98
[2023-04-07 14:20] VITALS: BP 118/53; PULSE 75; RESP 16; O2SAT 98
== END | disposition home or self-care (01) ==
LOC: CHF HDHVI 09:50
PROVIDERS: ATTEND Internal Medicine Cardiovascular Disease
DX: E11.69 Type 2 diabetes mellitus with other specified complication (principal); M86.672 Other chronic osteomyelitis, left ankle and foot; E11.621 Type 2 diabetes mellitus with foot ulcer; L89.610 Pressure ulcer of right heel, unstageable; L89.620 Pressure ulcer of left heel, unstageable; I10 Essential (primary) hypertension
CPT/HCPCS: 96365; 96366; G0463; J1642; J2185

== ENCOUNTER → 2023-04-11 | Outpatient (CLI) | payer MEDICARE, MEDICAID ==
[2023-04-11 10:35] VITALS: BP 128/59; PULSE 79; RESP 16; O2SAT 97
[2023-04-11 14:30] VITALS: BP 122/54; PULSE 74; RESP 16; O2SAT 97
== END | disposition home or self-care (01) ==
LOC: CHF HDHVI 10:25
PROVIDERS: ATTEND Internal Medicine Cardiovascular Disease
DX: E11.69 Type 2 diabetes mellitus with other specified complication (principal); M86.172 Other acute osteomyelitis, left ankle and foot; I10 Essential (primary) hypertension
CPT/HCPCS: 96365; 96366; G0463; J1642; J2185; 96361

== ENCOUNTER → 2023-04-14 | Outpatient (CLI) | payer MEDICARE, MEDICAID ==
[2023-04-14 10:17] VITALS: BP 172/71; PULSE 93; RESP 16; O2SAT 98
[2023-04-14 14:28] VITALS: BP 150/67; PULSE 80; RESP 16; O2SAT 98
== END | disposition home or self-care (01) ==
LOC: CHF HDHVI 10:08
PROVIDERS: ATTEND Internal Medicine Cardiovascular Disease
DX: E11.69 Type 2 diabetes mellitus with other specified complication (principal); M86.172 Other acute osteomyelitis, left ankle and foot; I10 Essential (primary) hypertension
CPT/HCPCS: 96365; 96366; G0463; J1642; J2185

== ENCOUNTER → 2023-04-15 | Outpatient (CLI) | payer MEDICARE, MEDICAID ==
[2023-04-15 10:17] VITALS: BP 131/60; PULSE 77; RESP 16; O2SAT 98
[2023-04-15 14:45] VITALS: BP 149/68; PULSE 74; RESP 16; O2SAT 98
== END | disposition home or self-care (01) ==
LOC: CHF HDHVI 10:14
PROVIDERS: ATTEND Internal Medicine Cardiovascular Disease
DX: E11.69 Type 2 diabetes mellitus with other specified complication (principal); M86.172 Other acute osteomyelitis, left ankle and foot; I10 Essential (primary) hypertension
CPT/HCPCS: 96365; 96366; G0463; J2185

== ENCOUNTER → 2023-10-10 | Outpatient (CLI) | payer MEDICARE, MEDICAID ==
[~2023-10-10] MED LIST changes: -MEROPENEM 1 GM IV ONE; -MEROPENEM 1GM IVPB 100 ML IV ONE
== END | disposition home or self-care (01) ==
LOC: Rad HDHVI 08:50
PROVIDERS: ATTEND Internal Medicine Cardiovascular Disease
DX: I65.23 Occlusion and stenosis of bilateral carotid arteries (principal); I73.9 Peripheral vascular disease, unspecified; L89.623 Pressure ulcer of left heel, stage 3
CPT/HCPCS: 93925

== ENCOUNTER → 2023-10-18 | Outpatient (CLI) | payer MEDICARE, MEDICAID | END | disposition home or self-care (01) | LOC: Rad HDHVI 08:00 | PROVIDERS: ATTEND Internal Medicine Cardiovascular Disease | DX: I08.8 Other rheumatic multiple valve diseases (principal); I50.33 Acute on chronic diastolic (congestive) heart failure | CPT/HCPCS: 93306 ==

== ENCOUNTER → 2024-06-18 | Outpatient (CLI) | payer MEDICARE, MEDICAID | END | disposition home or self-care (01) | LOC: Rad HDHVI 14:55 | PROVIDERS: ATTEND Internal Medicine Cardiovascular Disease | DX: I08.8 Other rheumatic multiple valve diseases (principal); E78.5 Hyperlipidemia, unspecified; I11.9 Hypertensive heart disease without heart failure | CPT/HCPCS: 93306 ==

== ENCOUNTER → 2024-06-25 | Outpatient (CLI) | payer MEDICARE, MEDICAID | END | disposition home or self-care (01) | LOC: Rad HDHVI 14:46 | PROVIDERS: ATTEND Internal Medicine Cardiovascular Disease | DX: I73.9 Peripheral vascular disease, unspecified (principal); M79.661 Pain in right lower leg; M79.662 Pain in left lower leg | CPT/HCPCS: 93925 ==

== ENCOUNTER → 2024-07-02 | Outpatient (CLI) | payer MEDICARE, MEDICAID ==
[~2024-07-02] VITALS: Ht 175.3 cm; Wt 82.6 kg
[~2024-07-02] MED LIST changes: +ADENOSINE 69 MG in GIVE UN-DILUTED 0 ML IV ONE; +ADENOSINE 90 MG/30 ML INJ IV ONE
== END | disposition home or self-care (01) ==
LOC: Rad HDHVI 08:24
PROVIDERS: ATTEND Internal Medicine Cardiovascular Disease
DX: I44.0 Atrioventricular block, first degree (principal); I25.10 Atherosclerotic heart disease of native coronary artery without angina pectoris; I13.2 Hypertensive heart and chronic kidney disease with heart failure and with stage 5 chronic kidney disease, or end stage renal disease; E11.42 Type 2 diabetes mellitus with diabetic polyneuropathy; I50.33 Acute on chronic diastolic (congestive) heart failure; E11.22 Type 2 diabetes mellitus with diabetic chronic kidney disease; N18.6 End stage renal disease; I73.9 Peripheral vascular disease, unspecified; I42.8 Other cardiomyopathies; E78.00 Pure hypercholesterolemia, unspecified; Z99.2 Dependence on renal dialysis; Z95.1 Presence of aortocoronary bypass graft; Z82.49 Family history of ischemic heart disease and other diseases of the circulatory system
CPT/HCPCS: 78452; 93005; A9500; J0153; 96374; 96375

== ENCOUNTER → 2024-08-14 | Outpatient (CLI) | payer MEDICARE, MEDICAID ==
[~2024-08-14] MED LIST changes: -ADENOSINE 69 MG in GIVE UN-DILUTED 0 ML IV ONE; -ADENOSINE 90 MG/30 ML INJ IV ONE; +AMLO1TAB21 PO; +ASPI-543 PO; +ATOR-507 PO; +BUMEX2MG PO; +CALC667C PO; +CILO50TA2 PO; +CLON0.1T PO; +CLOP75TA28 PO; +GLIM2TAB33 PO; +GLIM4TAB42 PO; +LEVEMIR SC; +METO-158 PO; +VERI5TAB PO
[2024-08-14 09:00] VITALS: BP 167/70; PULSE 68; RESP 16; O2SAT 97
[2024-08-14 09:20] VITALS: BP 149/69; PULSE 67; RESP 16; O2SAT 97
--- NOTE | 2024-08-14 12:10 | DVH ---
EXAM: XY CHEST TWO VIEWS ROUTINE CLINICAL HISTORY: Pain COMPARISON: None TECHNIQUE: Frontal and lateral view of the chest was obtained FINDINGS: Lines and Tubes: None Lungs: No focal consolidation. Pleura: No effusion. No pneumothorax. Cardiomediastinal contours: Unremarkable Bones: No acute osseous abnormality. IMPRESSION: No acute cardiopulmonary disease.
== END | disposition home or self-care (01) ==
LOC: Rad HDHVI 08:44
PROVIDERS: ATTEND Internal Medicine Cardiovascular Disease
DX: Z01.818 Encounter for other preprocedural examination (principal); R94.31 Abnormal electrocardiogram [ECG] [EKG]; I50.1 Left ventricular failure, unspecified; I73.9 Peripheral vascular disease, unspecified
CPT/HCPCS: 71046; 93005; G0463

== ENCOUNTER 2024-08-16 07:58 | Day surgery (SDC) | payer MEDICARE, MEDICAID ==
[2024-08-14 11:13] LABS: Basophils # (auto) 0 10 ^3/uL (0-0.2); Basophils % (auto) 1.1 % (0.0-2.0); Eosinophils # (auto) 0.2 10 ^3/uL (0-0.8); Eosinophils % (auto) 4.2 % (0.0-7.0); Hematocrit 36.8 % (41.0-53.0); Hemoglobin 12.4 g/dL (13.5-17.5); Lymphocytes # (auto) 1.1 10 ^3/uL (0.4-5.4); Lymphocytes % (auto) 25.1 % (10.0-50.0); Mean Corpuscular Hgb Conc. 33.6 g/dL (32.0-36.0); Mean Corpuscular Volume 98.1 fL (80.0-100.0); Monocytes # (auto) 0.3 10 ^3/uL (0-1.3); Monocytes % (auto) 7.5 % (0.0-12.0); Neutrophils # (auto) 2.8 10 ^3/uL (1.6-8.6); Neutrophils % (auto) 62.1 % (37.0-80.0); Platelet Count (auto) 144 10^3/uL (140-450); Red Blood Cells 3.75 10^6/uL (4.5-5.90); Red Cell Distribution Width 17.2 % (11.8-14.3); White Blood Cell 4.5 10^3/uL (4.4-10.8)
[2024-08-14 11:39] LABS: Anion Gap 14 (5-15); Carbon Dioxide 27 mmol/L (20-31); Sodium 138 mmol/L (136-145)
[2024-08-14 11:40] LABS: Chloride 97 mmol/L (98-107); Potassium 5.5 mmol/L (3.5-5.1)
[2024-08-14 11:42] LABS: Calcium 8.6 mg/dL (8.7-10.4)
[2024-08-14 11:45] LABS: Glucose 104 mg/dL (74-106)
[2024-08-14 11:46] LABS: BUN/Creatinine Ratio 7.1 (10.0-20.0); Blood Urea Nitrogen 59 mg/dL (9-23)
[2024-08-14 11:48] LABS: INR 1.08 (0.9-1.15); Partial Thromboplastin Time 25.6 SEC (24.5-34.5); Prothrombin Time 11.4 sec (9.3-11.8)
[~2024-08-16] VITALS: Ht 175.3 cm; Wt 83.0 kg
[~2024-08-16 07:58] MED LIST changes: -ALPR0.5T PO; -AMIO200T33 PO; -AMLO1TAB23 PO; -ATOR40TA52 PO; -B-CO-5 OR; -CARV6.2551 PO; -CHOL20007 PO; -DOCU100T15 PO; -FENO160T PO; -GABA-1250 PO; -GLIM2TAB33 PO; -HYDR1TAB97 PO; -INSREG3 SC; -LORA-622 PO; -METO25TA93 PO; -MONT-8 PO; -NYS5LQ MT; -PANT40TA2 PO; -PAR20T PO; -SEVE800T8 PO; -SIMV20TA20 PO; -SULF800T23 PO; -TICA90TA PO; -TRAZ-228 PO
[2024-08-16] MEDS: IODIXANOL 320MG/ML 100ML BTL IV ONE ×2 (09:38→10:13)
[2024-08-16] MEDS: fentaNYL CITRATE 100 MCG/2 ML VL ONE (09:47)
[2024-08-16] MEDS: LIDOCAINE 2%HCL (LOCAL ANESTH.) INJ 20ML MDV ONE (09:47)
[2024-08-16] MEDS: ANGIOMAX 250 MG VIAL IV ONE (09:47)
[2024-08-16] MEDS: MIDAZOLAM HCL 2MG/2ML 2ml VIAL (1mg/ml) ONE (09:47)
[2024-08-16] MEDS: SODIUM CHL 0.9% 50 ML ONE (09:47)
[2024-08-16 10:41] VITALS: BP 124/57; PULSE 57; RESP 16; TEMP 98; O2SAT 98
[2024-08-16] MEDS: CLOPIDOGREL BISULFATE 75 MG TAB ONE (10:49)
[2024-08-16 10:57] VITALS: BP 146/50; PULSE 58; RESP 14; O2SAT 94
--- NOTE | 2024-08-16 11:13 | DVHHP ---
ADMIT DATE: 08/16/2024 HISTORY OF PRESENT ILLNESS: The patient who is 53 years old with history of end-stage renal disease, hypertension, hyperlipidemia, diabetes, diabetic neuropathy, vasculopathy, nephropathy, on hemodialysis, now presents with signs and symptoms complex of chest pain. The patient is status post coronary artery bypass grafting x4 with COLLADO to the LAD to saphenous vein graft to the OM, saphenous vein graft to the PDA, and saphenous vein graft to the diagonal. Ejection fraction is slightly diminished and EF around 40%. He has been on hemodialysis. Also has severe peripheral vascular disease. He has undergone revascularization of the lower extremity. With a nonhealing ulcer now since the revascularization, the patient is doing well. Now he is having symptoms of chest pain, abnormal stress test. Echocardiogram shows diminished left ventricular ejection fraction. Because of the both presentation, it is felt that the patient should undergo coronary angiography to define coronary anatomy. Risks and benefits were explained to the patient. He denies any fever or chills. No melena or hematochezia. No hematemesis or hemoptysis. No history of hematuria as well. He has no history of seizure disorder. No history of CVA at this time as well. No neurological deficit. No GI symptoms such as irritable bowel syndrome, inflammatory bowel disease. No history of any peptic ulcer disease. No liver disease. SOCIAL HISTORY: No history of alcohol or tobacco use. PHYSICAL EXAMINATION: VITAL SIGNS: Blood pressure is 122/80, pulse of 60 and regular, O2 saturation 94% on room air. HEENT: Pupils are reactive. Funduscopic exam shows hard exudates. Some AV nicking. No papilledema noted. Sclerae anicteric. Extraocular muscles are intact. Oral mucosa moist. Posterior pharynx without any exudate. NECK: No JVD appreciated. Coronal pulses are 2+ symmetrical. Normal upstroke and contour. No cervical adenopathy. No supraclavicular adenopathy. PULMONARY: Clear to auscultation. Tympanic to percussion. CARDIOVASCULAR: Regular rate without S3, without S4. PMI is not displaced. There is a 2/6 systolic murmur along the left sternal border. ABDOMEN: Soft, nontender. No epigastric tenderness. No suprapubic tenderness. No CVA tenderness. Liver approximately 5 cm. Stool guaiac is negative. NEUROLOGIC: The patient is intact. Distal pulses are Doppler. ASSESSMENT AND PLAN: Thus, the patient with ischemic cardiomyopathy, now with chest pain, shortness of breath with exertion, abnormal stress test, diminished left ventricular ejection fraction. The patient is now to undergo coronary angiography to define coronary anatomy. Further recommendations after the angiogram. Shen Avalos MD SA/VALE TID: [id number] RECEIPT: [id number]
[2024-08-16 11:14] VITALS: BP 139/47; PULSE 59; RESP 17; O2SAT 97
--- NOTE | 2024-08-16 11:26 | DVHDS ---
DATE OF DISCHARGE: 08/16/2024 DISCHARGE DIAGNOSES: * The patient underwent successful angioplasty with stent placement of the saphenous vein graft to the diagonal with a 2.5 x 38 mm Aakash frontier stent. * The patient's saphenous vein graft to the PDA was occluded; however, COLLADO to the LAD was patent. * Saphenous vein graft to the OM was patent. * The patient is clinically stable, now being discharged home. HOSPITAL COURSE: Follow up with me in 1 week. Stable at the time of discharge. Continue dual antiplatelet therapy. Follow up with me. No other changes are required. The patient was instructed to follow for any bleeding diathesis, chest pain, or shortness of breath. Follow up with me in 1 week. Shen Avalos MD SA/NOE TID: [id number] RECEIPT: [id number]
[2024-08-16] MEDS ORDERED: NITR0.4S29 SL (11:27)
[2024-08-16] MEDS ORDERED: GLIM2TAB33 PO (11:27)
[2024-08-16 11:30] VITALS: BP 130/51; PULSE 60; RESP 16; O2SAT 94
--- NOTE | 2024-08-16 11:32 | DVHOP ---
DATE OF SURGERY: 08/16/2024 PROCEDURES PERFORMED: * Selective left and right coronary angiography. * Ventriculogram. * Left subclavian angiography. * Saphenous vein graft x 3. * Angioplasty with stent placement of the saphenous vein graft to the diagonal. * Intravascular ultrasound was performed as well and conscious sedation was given. DESCRIPTION OF PROCEDURE: The patient was prepped and draped in sterile condition. 1% Xylocaine used to anesthetize the right groin. The right femoral artery was engaged. Using Seldinger technique, a 6-Austrian sheath in the right femoral artery. Using 6-Austrian JL4 catheter, 6-Austrian JR4 catheter, selective left and right coronary angiographies were performed. Using 6-Austrian JR4 catheter, angiography of the subclavian, COLLADO, saphenous vein graft to the diagonal, saphenous vein graft to the OM, and saphenous vein graft to the PDA was performed. Then, using a 6-Austrian pigtail catheter, ventriculogram was done. Then, the 6-Austrian diagnostic system was exchanged for a 6-Austrian interventional system. Using a 6-Austrian JR4 guide catheter, we were able to cannulate the saphenous vein graft to the diagonal. Using a ChoICE PT extra support wire, the diagonal artery was cannulated. Intravascular ultrasound was performed to determine the size of the saphenous vein graft. The size of the saphenous vein graft, however, was very small, 2.5 mm in size with rapid tapering. Therefore, we elected to expand the ostium so that inflow would get better. Using a 2.5 x 38 mm Alpine Markham stent was deployed from the ostium to the mid portion of the saphenous vein graft. This improved the flow from a MARKELL grade 2 flow to MARKELL grade 3 flow. There were no complications. The patient tolerated the procedure well. RESULTS: * Left main patent. * Left anterior descending artery was occluded. * COLLADO to the LAD was patent. * Diagonal was occluded. * Saphenous vein graft to the diagonal was patent. * Circumflex was occluded. * Saphenous vein graft to the OM was patent. * Right coronary artery was occluded. * Saphenous vein graft to the PDA was occluded. CONCLUSION: The patient underwent successful revascularization of the saphenous vein graft to the diagonal, which was a small caliber vessel undersized. The patient needed a stent placed to improve the MARKELL grade 2 flow to MARKELL grade 3 flow. That was established stenting with a 2.5 x 38 mm Alpine Markham stent following intravascular ultrasound. There were no complications. The patient tolerated the procedure well. We will continue to follow the patient. Left ventriculogram showed the patient to have an EF around 35% to 40% with an LVEDP of 8 mmHg with no gradient across the aortic valve. Shen Avalos MD SA/LISSY TID: [id number] RECEIPT: [id number]
[2024-08-16 11:58] VITALS: BP 133/48; PULSE 56; RESP 16; O2SAT 96
[2024-08-16 12:36] VITALS: BP 139/58; PULSE 59; RESP 18; O2SAT 98
== END 2024-08-16 13:05 | disposition home or self-care (01) ==
LOC: CATH 07:58
PROVIDERS: ATTEND Internal Medicine Cardiovascular Disease
DX: I25.810 Atherosclerosis of coronary artery bypass graft(s) without angina pectoris (principal); R94.39 Abnormal result of other cardiovascular function study; I25.5 Ischemic cardiomyopathy; I12.0 Hypertensive chronic kidney disease with stage 5 chronic kidney disease or end stage renal disease; N18.6 End stage renal disease; E11.22 Type 2 diabetes mellitus with diabetic chronic kidney disease; E11.51 Type 2 diabetes mellitus with diabetic peripheral angiopathy without gangrene; E11.21 Type 2 diabetes mellitus with diabetic nephropathy; E78.5 Hyperlipidemia, unspecified; Z99.2 Dependence on renal dialysis; Z95.1 Presence of aortocoronary bypass graft
CPT/HCPCS: 36415; 80048; 85025; 85610; 85730; 92978; 93459; C1753; C1760; C1769; C1874; C1887; C1894; C9604; J0583; J1644; J2250; J3010; Q9967; 93458; 99152; 99153

== ENCOUNTER 2024-09-04 07:45 | Outpatient (CLI) | payer MEDICARE, MEDICAID ==
[~2024-09-04 07:45] MED LIST changes: +GLIM2TAB33 PO; -GLIM4TAB42 PO
[2024-09-04 08:14] LABS: Basophils # (auto) 0 10 ^3/uL (0-0.2); Basophils % (auto) 0.1 % (0.0-2.0); Eosinophils # (auto) 0.1 10 ^3/uL (0-0.8); Eosinophils % (auto) 1.9 % (0.0-7.0); Hematocrit 35.3 % (41.0-53.0); Hemoglobin 11.9 g/dL (13.5-17.5); Lymphocytes # (auto) 0.2 10 ^3/uL (0.4-5.4); Lymphocytes % (auto) 4.4 % (10.0-50.0); Mean Corpuscular Hemoglobin 33.7 pg (28.0-32.0); Mean Corpuscular Hgb Conc. 33.8 g/dL (32.0-36.0); Mean Corpuscular Volume 99.8 fL (80.0-100.0); Monocytes # (auto) 0.3 10 ^3/uL (0-1.3); Neutrophils # (auto) 4.5 10 ^3/uL (1.6-8.6); Neutrophils % (auto) 87.6 % (37.0-80.0); Nucleated Red Blood Cells % 0.1 %; Platelet Count (auto) 122 10^3/uL (140-450); Red Blood Cells 3.54 10^6/uL (4.5-5.90); Red Cell Distribution Width 15.9 % (11.8-14.3); White Blood Cell 5.1 10^3/uL (4.4-10.8)
[2024-09-04 08:53] LABS: Alanine Aminotransferase 29 U/L (7-40); Albumin 4.5 g/dL (3.2-4.8); Alkaline Phosphatase 107 U/L (46-116); Anion Gap 9 (5-15); Aspartate Aminotransferase 15 U/L (13-40); Bilirubin, Total 0.7 mg/dL (0.2-1.0); Carbon Dioxide 22 mmol/L (20-31); Chloride 107 mmol/L (98-107); Potassium 4.9 mmol/L (3.5-5.1); Sodium 138 mmol/L (136-145); Uric Acid 5.6 mg/dL (3.7-9.2)
[2024-09-04 08:56] LABS: Erythrocyte Sedimentation Rate 2 mm/hr (0-20)
[2024-09-04 09:03] LABS: Total Protein 6.5 g/dL (5.7-8.2)
[2024-09-04 09:11] LABS: BUN/Creatinine Ratio 12.6 (10.0-20.0); Blood Urea Nitrogen 17 mg/dL (9-23)
[2024-09-04 09:22] LABS: Glucose 159 mg/dL (74-106)
[2024-09-04 09:41] LABS: Cholesterol 260 mg/dL (< 200); HDL Cholesterol 37 mg/dL (40-59); LDL Cholesterol 168 mg/dL (< 100); Triglycerides 353 mg/dL (< 150)
[2024-09-04 10:27] LABS: Free T4 (Free Thyroxine) 1.45 ng/dL (0.89-1.76)
== END 2024-09-04 17:00 | disposition home or self-care (01) ==
LOC: LAB 07:45
PROVIDERS: ATTEND Internal Medicine
DX: I12.0 Hypertensive chronic kidney disease with stage 5 chronic kidney disease or end stage renal disease (principal); N18.6 End stage renal disease; I25.10 Atherosclerotic heart disease of native coronary artery without angina pectoris
CPT/HCPCS: 36415; 80053; 80061; 82607; 84439; 84443; 84550; 85025; 85652

== ENCOUNTER → 2024-10-10 | Outpatient (CLI) | payer MEDICARE, MEDICAID ==
--- NOTE | 2024-10-10 10:16 | DVHSR ---
APPROVED REPORT EXAM: Two-dimensional and M-mode echocardiogram with Doppler and color Doppler. Surgery/Intervention CABG: DIMENSIONS LVDd3.8 (3.8-5.7cm)LA (2D)3.9 (1.9-4.0cm)Aortic Root3.3 (2.0-3.7cm) LVDs2.9 (2.5-4.0cm)LA (MM) (1.9-4.0cm)Aortic Cusp Exc1.5 (1.5-2.0cm) EF (%) 45.0 (55-70%)Rt. Atrium3.4 (1.9-4.0cm)Asc. Aorta cm IVSd1.4 (0.7-1.1cm)RV (D) (1.8-2.4cm) PWd1.4 (0.7-1.1cm) Mitral Valve MitralMitral Stenosis E wave0.54m/sMV Mean GR.mmHg A wave0.81m/sMV Peak GR.mmHg E/A ratio0.72D MVAcm2 DECEL [id number] 1/2 Timems Aortic Valve Aortic ValveAortic Stenosis V10.75m/Sandrita Mean GR.2mmHg V21.05m/Sandrita Peak GR.4mmHg LVOT Diameter2.1 (1.8-2.4cm)Doppler AVA2.47cm2 Pulmonic Valve V21.08m/s LEFT VENTRICLE The left ventricle is normal size. There is mild concentric left ventricular hypertrophy. The left ventricle is normal in structure. The Ejection Fraction is below normal limits. The Ejection Fraction is 45-50%. RIGHT VENTRICLE The right ventricle is normal size. ATRIA The left atrial size is normal. The right atrium size is normal. The interatrial septum is intact with no evidence for an atrial septal defect. MITRAL VALVE The mitral valve is normal in structure. There is no mitral valve regurgitation noted. PULMONIC VALVE The pulmonic valve is not well visualized. TRICUSPID VALVE The tricuspid valve is grossly normal. There is trace tricuspid regurgitation. AORTIC VALVE The aortic valve opens well. The aortic valve is mildly sclerotic. No aortic regurgitation is present. GREAT VESSELS The aortic root is normal size. PERICARDIAL EFFUSION There is no pericardial effusion. Conclusion CONC LVH EF 40-45% MILD AV SCLEROSIS
== END | disposition home or self-care (01) ==
LOC: Rad HDHVI 08:03
PROVIDERS: ATTEND Internal Medicine Cardiovascular Disease
DX: I35.8 Other nonrheumatic aortic valve disorders (principal); I73.89 Other specified peripheral vascular diseases; I11.0 Hypertensive heart disease with heart failure; I50.9 Heart failure, unspecified
CPT/HCPCS: 93306

== ENCOUNTER → 2024-11-30 | Outpatient (CLI) | payer MEDICARE, MEDICAID ==
[2024-11-30 08:46] LABS: Triglycerides 111 mg/dL (< 150)
[2024-11-30 08:48] LABS: Cholesterol 122 mg/dL (< 200); HDL Cholesterol 48 mg/dL (40-59)
== END | disposition home or self-care (01) ==
LOC: LAB 07:38
PROVIDERS: ATTEND Internal Medicine
DX: E11.21 Type 2 diabetes mellitus with diabetic nephropathy (principal)
CPT/HCPCS: 36415; 80061; 82607

== ENCOUNTER → 2024-12-13 | Outpatient (CLI) | payer MEDICARE, MEDICAID ==
[2024-12-13 08:07] LABS: Hematocrit 41.7 % (41.0-53.0); Hemoglobin 14.1 g/dL (13.5-17.5); Mean Corpuscular Hemoglobin 31.9 pg (28.0-32.0); Mean Corpuscular Volume 94.2 fL (80.0-100.0); Nucleated Red Blood Cells % 0.0 %
[2024-12-13 08:11] LABS: Chloride 105.0 mmol/L (98-107); Potassium 5.1 mmol/L (3.5-5.1); Sodium 138.0 mmol/L (136-145)
[2024-12-13 08:12] LABS: Anion Gap 8.0 (5-15); Carbon Dioxide 25.0 mmol/L (20-31)
[2024-12-13 08:13] LABS: Calcium 9.6 mg/dL (8.7-10.4)
[2024-12-13 08:17] LABS: Urine Protein, UAD Negative (Negative)
[2024-12-13 08:19] LABS: Albumin 4.4 g/dL (3.2-4.8); Microalb/Creat Ratio, Urine 8.00
[2024-12-13 08:20] LABS: BUN/Creatinine Ratio 16.2 (10.0-20.0); Blood Urea Nitrogen 18.0 mg/dL (9-23); Glucose 120.0 mg/dL (74-106)
[2024-12-13 11:09] LABS: Uric Acid 5.8 mg/dL (3.7-9.2)
== END | disposition home or self-care (01) ==
LOC: LAB 07:19
PROVIDERS: ATTEND Nurse Practitioner Primary Care
DX: I13.0 Hypertensive heart and chronic kidney disease with heart failure and stage 1 through stage 4 chronic kidney disease, or unspecified chronic kidney disease (principal); E11.22 Type 2 diabetes mellitus with diabetic chronic kidney disease; N18.30 Chronic kidney disease, stage 3 unspecified; I50.9 Heart failure, unspecified; E11.21 Type 2 diabetes mellitus with diabetic nephropathy; E21.3 Hyperparathyroidism, unspecified; E55.9 Vitamin D deficiency, unspecified; N39.0 Urinary tract infection, site not specified; D63.1 Anemia in chronic kidney disease; M10.9 Gout, unspecified; R80.9 Proteinuria, unspecified
CPT/HCPCS: 36415; 80069; 81001; 82043; 82570; 83970; 84156; 84550; 85025

== ENCOUNTER → 2025-01-09 | Outpatient (CLI) | payer MEDICARE, MEDICAID ==
[2025-01-09 07:21] LABS: Hematocrit 41.6 % (41.0-53.0); Hemoglobin 13.9 g/dL (13.5-17.5); Mean Corpuscular Hemoglobin 31.2 pg (28.0-32.0); Mean Corpuscular Volume 93.1 fL (80.0-100.0); Nucleated Red Blood Cells % 0.2 %
[2025-01-09 07:52] LABS: Alanine Aminotransferase 42 U/L (7-40); Albumin 4.3 g/dL (3.2-4.8); Alkaline Phosphatase 173 U/L (46-116); Anion Gap 11 (5-15); BUN/Creatinine Ratio 17.1 (10.0-20.0); Blood Urea Nitrogen 18 mg/dL (9-23); Calcium 9.4 mg/dL (8.7-10.4); Carbon Dioxide 24 mmol/L (20-31); Chloride 107 mmol/L (98-107); Glucose 129 mg/dL (74-106); Magnesium 1.7 mg/dL (1.6-2.6); Potassium 4.7 mmol/L (3.5-5.1); Sodium 142 mmol/L (136-145); Total Protein 6.6 g/dL (5.7-8.2)
[2025-01-09 07:53] LABS: Bilirubin, Total 0.8 mg/dL (0.2-1.0)
[2025-01-09 08:10] LABS: Microalb/Creat Ratio, Urine 11.0
[2025-01-09 11:24] LABS: Uric Acid 6.0 mg/dL (3.7-9.2)
== END | disposition home or self-care (01) ==
LOC: LAB 06:49
PROVIDERS: ATTEND Internal Medicine Nephrology
DX: I13.0 Hypertensive heart and chronic kidney disease with heart failure and stage 1 through stage 4 chronic kidney disease, or unspecified chronic kidney disease (principal); E11.22 Type 2 diabetes mellitus with diabetic chronic kidney disease; N18.30 Chronic kidney disease, stage 3 unspecified; I50.9 Heart failure, unspecified; E11.21 Type 2 diabetes mellitus with diabetic nephropathy; E21.3 Hyperparathyroidism, unspecified; E55.9 Vitamin D deficiency, unspecified; N39.0 Urinary tract infection, site not specified; D63.1 Anemia in chronic kidney disease; M10.9 Gout, unspecified; R80.9 Proteinuria, unspecified
CPT/HCPCS: 36415; 80053; 80197; 82043; 82306; 82570; 83036; 83735; 83970; 84100; 84550; 85025

== ENCOUNTER 2025-02-15 06:42 | Outpatient (CLI) | payer MEDICARE, MEDICAID ==
[2025-02-15 08:04] LABS: Albumin 4.6 g/dL (3.2-4.8); Anion Gap 10 (5-15); BUN/Creatinine Ratio 17.4 (10.0-20.0); Blood Urea Nitrogen 16 mg/dL (9-23); Calcium 10.0 mg/dL (8.7-10.4); Carbon Dioxide 27 mmol/L (20-31); Chloride 105 mmol/L (98-107); Magnesium 2.0 mg/dL (1.6-2.6); Sodium 142 mmol/L (136-145); Total Protein 7.1 g/dL (5.7-8.2)
[2025-02-15 08:05] LABS: Bilirubin, Total 0.8 mg/dL (0.2-1.0)
[2025-02-15 08:06] LABS: Alanine Aminotransferase 82 U/L (7-40); Alkaline Phosphatase 197 U/L (46-116); Glucose 129 mg/dL (74-106); Potassium 5.5 mmol/L (3.5-5.1)
[2025-02-15 08:11] LABS: Protein, Urine 7.1 mg/dL (1-14)
[2025-02-15 08:34] LABS: Uric Acid 6.2 mg/dL (3.7-9.2)
== END 2025-02-18 17:00 | disposition home or self-care (01) ==
LOC: LAB 06:42
PROVIDERS: ATTEND Internal Medicine Nephrology
DX: I13.0 Hypertensive heart and chronic kidney disease with heart failure and stage 1 through stage 4 chronic kidney disease, or unspecified chronic kidney disease (principal); E11.22 Type 2 diabetes mellitus with diabetic chronic kidney disease; N18.30 Chronic kidney disease, stage 3 unspecified; I50.9 Heart failure, unspecified; E11.21 Type 2 diabetes mellitus with diabetic nephropathy; E55.9 Vitamin D deficiency, unspecified; E21.3 Hyperparathyroidism, unspecified; N39.0 Urinary tract infection, site not specified; D63.1 Anemia in chronic kidney disease; M10.9 Gout, unspecified; R80.9 Proteinuria, unspecified
CPT/HCPCS: 36415; 80053; 80197; 82570; 83735; 83970; 84100; 84156; 84550

== ENCOUNTER 2025-03-15 06:28 | Outpatient (CLI) | payer MEDICARE, MEDICAID ==
[2025-03-15 07:04] LABS: Hematocrit 33.4 % (41.0-53.0); Hemoglobin 10.9 g/dL (13.5-17.5); Mean Corpuscular Hemoglobin 31.3 pg (28.0-32.0); Mean Corpuscular Volume 95.9 fL (80.0-100.0); Nucleated Red Blood Cells % 0.2 %
[2025-03-15 07:21] LABS: Urine Protein, UAD Negative (Negative)
[2025-03-15 07:36] LABS: Albumin 4.1 g/dL (3.2-4.8); Anion Gap 9 (5-15); BUN/Creatinine Ratio 29.8 (10.0-20.0); Calcium 8.8 mg/dL (8.7-10.4); Carbon Dioxide 27 mmol/L (20-31); Chloride 105 mmol/L (98-107); Magnesium 2.0 mg/dL (1.6-2.6); Sodium 141 mmol/L (136-145); Total Protein 6.4 g/dL (5.7-8.2)
[2025-03-15 08:11] LABS: Alanine Aminotransferase 50 U/L (7-40); Alkaline Phosphatase 217 U/L (46-116); Bilirubin, Total 1.6 mg/dL (0.2-1.0); Blood Urea Nitrogen 28 mg/dL (9-23); Glucose 118 mg/dL (74-106); Potassium 5.6 mmol/L (3.5-5.1)
== END 2025-03-15 17:00 | disposition home or self-care (01) ==
LOC: LAB 06:28
PROVIDERS: ATTEND Internal Medicine Nephrology
DX: E11.22 Type 2 diabetes mellitus with diabetic chronic kidney disease (principal); N18.30 Chronic kidney disease, stage 3 unspecified; E11.21 Type 2 diabetes mellitus with diabetic nephropathy; E21.3 Hyperparathyroidism, unspecified; E55.9 Vitamin D deficiency, unspecified; N39.0 Urinary tract infection, site not specified; D63.1 Anemia in chronic kidney disease; M10.9 Gout, unspecified; R80.9 Proteinuria, unspecified
CPT/HCPCS: 36415; 80053; 80197; 81001; 82043; 83735; 84100; 85025

== ENCOUNTER → 2025-03-19 | Outpatient (CLI) | payer MEDICARE, MEDICAID ==
--- NOTE | 2025-03-19 11:42 | DVH ---
PROCEDURE: NM BONE WHOLE BODY Exam Date: 03/19/2025 09:47 AM Reason for study/Clinical History: ABNORMAL LABS Comparison Study: None Prior correlative imaging: None Nuclear Medicine Whole Body Bone Scan TECHNIQUE: Following the intravenous administration of 20.1 millicuries of technetium 99m labeled MDP, whole body images in the anterior and posterior projections were obtained 3 hours following the administration of radiopharmaceutical. FINDINGS: There is mild symmetric multifocal activity overlying both shoulders consistent with mild degenerative change. The expected mild activity is noted overlying both kidneys and the bladder without evidence of obstruction. IMPRESSION: There is no evidence of focal increased uptake consistent with bony metastatic disease. Mild multifocal activity consistent with degenerative changes as described above.
== END | disposition home or self-care (01) ==
LOC: XYW 07:00
PROVIDERS: ATTEND Internal Medicine
DX: M25.811 Other specified joint disorders, right shoulder (principal); M25.812 Other specified joint disorders, left shoulder
CPT/HCPCS: 78306; A9503